=== PATIENT | female | born 1980 | race Caucasian/White ===

== ENCOUNTER 2018-01-15 21:22 | Emergency (ER) | payer BC ==
[2018-01-15] MEDS ORDERED: Fluorescein Sod TOPICAL 0.6* 0.6 MG TEST OPHTHALMIC ONE (21:33)
[2018-01-15] MEDS ORDERED: Tetracaine 0.5% OPTH.SOL 4 ML* 1 DROP BTL RIGHT EYE ONE (21:33)
[2018-01-15 21:36] VITALS: BP 115/73
--- NOTE | 2018-01-15 21:43 | UC ---
Eye Complaint HPI - HPI Summary HPI Summary: Poked right eye with vap pen at 1:30 PM. Ongoing pain and photosensitivity - History of Current Complaint Stated Complaint: EYE COMPLAINT Time Seen by Provider: 01/15/18 21:33 Hx Obtained From: Patient Hx Last Menstrual Period: 2012 ?: No Onset/Duration: Sudden Onset, Lasting Hours - 9, Still Present Timing: Constant Severity Initially: Severe Severity Currently: Severe Pain Intensity: 7 Location of Injury: Other - cornea Character: Sharp, Foreign Body Sensation Aggravating Factor(s): Light, Blinking Alleviating Factor(s): Nothing Associated Signs And Symptoms: Positive: Photophobia - Risk Factors Penetrating Injury Risk Factor: Negative Globe Rupture Risk Factors: Recent Trauma - Allergies/Home Medications Allergies/Adverse Reactions: Allergies Allergy/AdvReac Type Severity Reaction Status Date / Time bupropion [From Wellbutrin] Allergy Hives Verified 01/15/18 21:41 gabapentin Allergy Hives Verified 01/15/18 21:41 heparin Allergy Hives Verified 01/15/18 21:41 metronidazole [From Flagyl] Allergy Hives Verified 01/15/18 21:41 vancomycin Allergy Hives Verified 01/15/18 21:41 Home Medications: Home Medications Cholecalciferol TAB* [Vitamin D TAB*] 400 unit PO DAILY 01/15/18 [History Confirmed 01/15/18] Cyanocobalamin TAB* [Vitamin B12 TAB*] 500 mcg PO DAILY 01/15/18 [History Confirmed 01/15/18] DULoxetine DR CAP* [Cymbalta CAP*] 60 mg PO BID 01/15/18 [History Confirmed ] Hydroxychloroquine TAB* [Plaquenil TAB*] 200 mg PO DAILY 01/15/18 [History Confirmed 01/15/18] Saliva Stimulant Comb. No.4 [Dry Mouth] 1 udc MM BID 01/15/18 [History Confirmed 01/15/18] Topiramate [Topamax] 100 mg PO BID 01/15/18 [History Confirmed 01/15/18] PMH/Surg Hx/FS Hx/Imm Hx - Additional Past Medical History Additional PMH: Lupus - Surgical History Surgical History: Yes Surgery Procedure, Year, and Place: 9 - Family History Known Family History: Positive: Hypertension - Social History Occupation: Employed Full-time Lives: With Family Alcohol Use: Occasionally Substance Use Type: None Smoking Status (MU): Former Smoker - Immunization History Most Recent Tetanus Shot: 2017 Review of Systems Eyes: Blurred Vision, Eye Redness Gastrointestinal: Diarrhea Is Patient Immunocompromised?: No All Other Systems Reviewed And Are Negative: Yes Physical Exam Triage Information Reviewed: Yes Appearance: Well-Appearing, Well-Nourished, Pain Distress - moderate Vital Signs: Initial Vital Signs Temp 97.8 F 01/15/18 21:28 Pulse 86 01/15/18 21:28 Resp 17 01/15/18 21:28 BP 115/73 01/15/18 21:28 Pulse Ox 100 01/15/18 21:28 Vital Signs Reviewed: Yes Eyes: Positive: Conjunctiva Inflamed - OD, Other: - Positive fluorescein uptake in the middle upper cornea approximately 2mm area ENT: Positive: Pharynx normal, TMs normal Neck exam: Normal Respiratory Exam: Normal Cardiovascular Exam: Normal Abdominal Exam: Normal Bowel Sounds: Positive: Present Musculoskeletal Exam: Normal Neurological Exam: Normal Psychological Exam: Normal Skin Exam: Normal Eye Complaint Course/Dx - Differential Dx/Diagnosis Differential Diagnosis/HQI/PQRI: Conjunctivitis, Corneal Abrasion, Foreign Body Provider Diagnoses: Corneal abrasion Discharge - Sign-Out/Discharge Documenting (check all that apply): Patient Departure - Discharge Plan Condition: Stable Disposition: HOME Patient Education Materials: Corneal Abrasion (ED), Erythromycin (Into the eye) Referrals: No Primary Care Phys,NOPCP [Primary Care Provider] - Additional Instructions: EYE OINTMENT USE: Wash hands. Place 1/4" strip across tip of finger. Pull lower lid down with the index finger and stabilize the ointment finger with the middle finger and scrape the ointment off on the lid. Pull the lid out and let go as you look down. - Billing Disposition and Condition Condition: STABLE Disposition: Home
[2018-01-15] MEDS ORDERED: Erythromycin OPTH OINT* APPLIC OINT RIGHT EYE ONE (21:48)
== END 2018-01-15 22:06 | disposition home or self-care (01) ==
LOC: UCCORT 21:22
DX: S05.01XA Injury of conjunctiva and corneal abrasion without foreign body, right eye, initial encounter (principal); W22.8XXA Striking against or struck by other objects, initial encounter; Y93.9 Activity, unspecified; Y92.9 Unspecified place or not applicable; Z88.1 Allergy status to other antibiotic agents; Z88.8 Allergy status to other drugs, medicaments and biological substances; Z87.891 Personal history of nicotine dependence
CPT/HCPCS: 99202; A9270-GY; G0463

== ENCOUNTER 2019-08-02 10:22 | Emergency (ER) | payer BC ==
--- OUTSIDE RECORDS SUMMARY | 2019-08-02 12:21 | XMS REPORT | Continuity of Care Document ---
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 Problems Description No Information Available Social History Type Date Description Comments Sex Unknown Tobacco Use Start: Unknown End: Unknown Former Cigarette Smoker Smoking Status Reviewed: 07/21/19 Former Cigarette Smoker ETOH Use Drinks 1 Alcoholic Beverage Per Day Allergies, Adverse Reactions, Alerts Active Allergies Reaction Severity Comments Date Wellbutrin 07/21/2019 Heparin 07/21/2019 Vancomycin 07/21/2019 Flagyl 07/21/2019 Medications Active Medications SIG Qnty Indications Ordering Date Provider Vitamin B-12 1 tabl by Unknown 1000mcg Tablets mouth every day Vitamin D2 1 by mouth Unknown 2000Unit Tablets every day Nabumetone take 1 tablet Unknown 750mg Tablets by mouth 2 times a day with food Cevimeline HCL Unknown 30mg Capsules Topiramate 1 by mouth 30tabs Unknown 100mg Tablets every day Hydroxychloroquine Sulfate 1 by mouth 180tabs Unknown 200mg every day Tablets Duloxetine HCL 1 by mouth Unknown 60mg Caps DR Part every day Folic Acid 1 tabl by Unknown 1mg Tablets mouth every day Immunizations Description No Information Available Vital Signs Date Vital Result Comment 07/21/2019 11:05am BP Systolic Sitting Right Arm 118 mmHg BP Diastolic Sitting Right Arm 88 mmHg Heart Rate 80 /min Respiratory Rate 18 /min Weight 188.00 lb O2 % BldC Oximetry 99 % Ora Results Description No Information Available Procedures Date Code Description Status 07/21/2019 26034 EKG-Tracing And Report Completed Medical Devices Description No Information Available Encounters Type Date Location Provider Dx Diagnosis Office Visit 07/21/2019 11:00a Cardiology Office Art Farmer MD R00.2 Palpitations R07.89 Other chest pain Assessments Date Code Description Provider 07/21/2019 R00.2 Palpitations Art Farmer MD 07/21/2019 R07.89 Other chest pain Art Farmer MD Plan of Treatment Future Appointment(s):08/31/2019 3:40 pm - Art Farmer MD at Cardiology [id number]/21/2019 - Art Farmer MDR00.2 PalpitationsNew Orders:Echocardiogram, Ordered: 07/21/2013 Cardiac Event Monitor, Ordered: 07/21/19Comments:Likely sinus tachycardia and PACs/PVCs per history. Will get Echo and Cardionet for further assessment. Will need to obtain a copy of labs from PCP for TSH and CBC , [email or web address] Other chest painComments:Non cardiac chest wall pain, likely due to her chronic back issues. Discussed and reassured. Will have echo. If normal structure and function, will hold off ischemic testing as she is a very low pretest probabilityAllFollow up:copy of labs from PCP follow up after testing completed Functional Status Description No Information Available Mental Status Description No Information Available Referrals Description No Information Available
--- OUTSIDE RECORDS SUMMARY | 2019-08-02 12:21 | XMS REPORT | Continuity of Care Document ---
:1980 Author Organization [facility] Address [address], [place] [id number] Phone Care Team Providers Name Role Phone Allen HARRIS, September Unavailable Unavailable Allergies, Adverse Reactions, Alerts Substance Reaction Status VANCOMYCIN HCL Active metronidazole Active BUPROPION HCL Active Medications Medication Instructions Dosage Effective Status Comments Dates (start - stop) NABUMETONE 750 MG TAKE 1 TABLET BY 750 MG - Active TABLET MOUTH EVERY DAY prednisone 5 mg tablet take 4 Tablet by 20 MG - Active oral route every day decrease by 1 tab every 5 days methotrexate sodium 2.5 take 4 Tablet by 10 MG - Active mg tablet oral route every week folic acid 1 mg tablet take 1 tablet by 1 MG - Active oral route every day VALACYCLOVIR HCL 500 MG TAKE 1 TABLET BY - Active TABLET MOUTH EVERY DAY CEVIMELINE HCL 30 MG TAKE 1 CAPSULE BY - Active CAPSULE MOUTH TWO TIMES DAILY hydroxychloroquine 200 TAKE 2 TABLETS BY - Active mg tablet MOUTH EVERY DAY cyclobenzaprine 5 mg take 1 tablet by 5 MG - Active tablet oral route 2 times every day oxcarbazepine 150 mg take 1 (150MG) 150 MG - Active tablet by oral route 2 times every day Topamax 200 mg tablet take 1 tablet by 200 MG - Active oral route 2 times every day peppermint oil - Active Align 4 mg capsule - Active Pepcid 20 mg tablet take 1 tablet by 20 MG - Active oral route 2 times every day tramadol 50 mg tablet take 2 tablet by 100 MG - Active oral route every 8 hours as needed Cymbalta 60 mg take 1 capsule by 60 MG - Active capsule,delayed release oral route 2 times every day Vitamin D3 4,000 unit take 2 by Oral 2 - Active capsule route once Vitamin B-12 ER 1,000 take 1 by Oral 1 - Active mcg tablet,extended route once release CRANBERRY (unknown Not Available - Active strength) Zofran 4 mg tablet take 2 tablet by 8 MG - Active oral route every 8 hours for 2 days as needed nabumetone 750 mg take 1 tablet by 750 MG - No Longer tablet oral route every Active day Problems Condition Effective Dates (start - Clinical Status Comments stop) Systemic involvement of connective tissue, unspecified 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 Pain in rt hip Polyarthritis Systemic involvement of connective tissue, unspecified Other retirement (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 Systemic involvement of connective tissue, unspecified Other retirement (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 Systemic involvement of connective tissue, unspecified 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 Systemic involvement of connective tissue, unspecified 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 Fibromyalgia Systemic involvement of connective tissue, unspecified 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 Systemic involvement of connective tissue, unspecified 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 Fibromyalgia Carpal tunnel syndrome of lt arm Carpal tunnel syndrome of rt arm Systemic involvement of connective tissue, unspecified Fibromyalgia 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 Systemic involvement of connective tissue, unspecified Other retirement 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 Fibromyalgia Systemic involvement of connective tissue, unspecified Other retirement 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 Systemic involvement of connective tissue, unspecified Other retirement 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 Back pain Systemic involvement of connective tissue, unspecified Fibromyalgia Other retirement 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 Back pain Systemic involvement of connective tissue, unspecified 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 Pain in unspecified hand Pain in unspecified ankle and joints of unspecified foot Plantar fasciitis Systemic involvement of connective tissue, unspecified 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 Abnormal weight gain Fatigue Systemic involvement of connective tissue, unspecified Other retirement 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 Systemic involvement of connective tissue, unspecified 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 Pain in joint Fatigue Back pain Fibromyalgia Pain in joint Fatigue Back pain Rheumatoid factor negative - Active Anxiety Active GERD Active Migraine Headaches Active Procedures Procedure Date No information Results Test Name Date and Time Measure Units Reference Range Abnormal Flag Status Comments No information Advance Directives Directive Yes / No Effective Date File Name No information Encounters Encounter Practice Location Reason(s) Diagnoses Date Provider Providers Description For Visit Copied on Encounter [facility] PA-C September. [facility] 0 5794 PLLC, 5794 PLLC [facility], [place], [place], [id number], [id number], [place]. [place] tel:[phone] tel:[phone] Arthritis Arthritis Systemic [facility] [place] involvement PA-C September. Provider: Ty Mcrae [facility] 9 5794 [facility], 5794 PLLC tissue, [facility] unspecifiedOt MD Veto, [address] [place], her joint terminal attack controller [place], Quinn [place], (current) [place], [address] [place], drug [id number], [address], [id number], therapyPain [place]. [place], [place] in rt tel:[phone] [place], tel:[phone] hipPolyarthri [phone] [id number]. [id number] tis tel:[phone] lting Provider: Dayanna panda, [address], [place], [address]. tel:[phone] lting Provider: Eleazar Witt MD, [facility] [address], [place], [address]. tel:[phone] ring Provider: Lesia Venegas MD, [address] [facility], [place], [place], [id number]. tel:[phone] [facility] PA-C September. [facility] 9 5794 PLLC, 5794 PLLC [facility], [place], [place], [id number], [id number], [place]. [place] tel:[phone] tel:[phone] [facility] PA-C September. [facility] 9 5794 PLLC, 5794 PLLC [facility], [place], [place], [id number], [id number], [place]. [place] tel:[phone] tel:[phone] [facility] [place] September. [facility] 9 5794 PLLC, 5794 PLLC [facility], [place], [place], [place], [id number], [id number], [place]. [place] tel:[phone] tel:[phone] Arthritis Arthritis Systemic [facility] [place] involvement PA-C September. 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 [place], [place] tel:[phone] [place], tel:[phone] [id number]. [id number] tel:[phone] lting Provider: Dayanna Gaines , [address] [facility] [address], [place], [address]. tel:[phone] lting Provider: Eleazar Witt MD, [facility] [address], [place], [address]. tel:[phone] [facility] Provider: Lesia Venegas MD, [address], [place], [id number]. tel:[phone] Arthritis Arthritis Systemic [facility] [place] involvement PA-C September. Provider: [facility] connective 9 5794 [facility], 5794 PLLC tissue, [facility] MD, [address] [place] [address], her retirement [place], Quinn [place], (current) [place], [address] Suite [place], 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 [id number], [address], [id number], [place]. [place], [place] tel:[phone] [place], tel:[phone] [id number]. [id number] tel:[phone] lting Provider: Dayanna panda, [address] [facility] [address], [place], [address]. tel:[phone] lting Provider: Eleazar Witt MD, [facility] [place] [address] [facility] [address], [place], [address]. tel:[phone] ring Provider: Lesia Venegas MD, [address] [place], [place], [id number]. tel:[phone] Arthritis Arthritis Systemic Aug- [facility] [place] involvement PA-C September. Provider: [facility] connective 9 5794 [facility] PLLC, 5794 PLLC tissue, [facility] Laws MD, [address] [place] [address], her retirement [place], Quinn [place], (current) [place]., [facility], 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 [id number], [address], [id number], [place]. [place], [place] tel:[phone] [place], tel:[phone] [id number]. [id number] tel:[phone] lting Provider: Dayanna panda, [address] [facility] [address], [place], [address]. tel:[phone] lting Provider: Eleazar Witt MD, [facility] [place] [address] [facility] [address], [place], [address]. tel:[phone] ring Provider: Lesia Venegas MD, [address] [place], [place], [id number]. tel:[phone] Arthritis Arthritis Systemic Jul- [facility] [place] involvement PA-C September. 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 [place], [place] yalgia tel:[phone] [place], tel:[phone] [id number]. [id number] tel:[phone] lting Provider: Dayanna panda, [address] [facility] [address], [place], [address]. tel:[phone] lting Provider: Eleazar Witt MD, [facility] [place] [address] [facility] [address], [place], [address]. tel:[phone] ring Provider: Herrera Upton, [address] [place] [address], [place], [address]. tel:[phone] Arthritis Arthritis Systemic Dec-1 [facility] [place] involvement PA-C September. Provider: [facility] connective 8 5794 [facility] PLLC, 5794 PLLC tissue, 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 [place], [place] tel:[phone] [place], tel:[phone] [id number]. [id number] tel:[phone] lting Provider: Dayanna panda, [address] [facility] [address], [place], [address]. tel:[phone] lting Provider: Eleazar Witt MD, [facility] [place] [address] [facility] [address], [place], [address]. tel:[phone] ring Provider: Herrera Upton, [address] [place] [address], [place], [address]. tel:[phone] Arthritis Arthritis Systemic Sep-0 [facility] [place] involvement PA-C September. Provider: [facility] connective 8 5794 [facility] PLL[facility], 5794 PLLC tissue, 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 [place], [place] yalgiaCarpal tel:+42 [place], tel:[phone]. [phone] syndrome of tel: lt armCarpal [id number] tunnel lting syndrome of Provider: rt arm Dayanna panda, [address] [facility] [address], [place], [address]. tel:[phone] lting Provider: Eleazar Witt MD, [facility] [place] [address] [facility] [address], [place], [address]. [phone] ring Provider: Herrera Upton, [address] [place] [address] [place], [address]. tel:[phone] Arthritis Arthritis Systemic [employer] [facility] Health involvement 6-201 Lianne Romero Provider: [facility] connective 8 5794 [facility] PLLC, 5794 PLLC tissue, [facility] unspecifiedFi MD Justyna, [address] [place], bromyalgiaOth [place], Quinn [place], er retirement [place], [address] [place], (current) [id number], [address], [id number], 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 [place]. [place], [place] tel:+42 [place], tel:[phone]. [id number] tel:[phone] lting Provider: Dayanna panda, [address] [facility] [address], [place], [address]. tel:[phone] lting Provider: Eleazar Witt MD, [facility] [place] [address] [facility] [address], [place], [address]. tel:[phone] ring Provider: Herrera Upton, [address] [facility] [address], [place], [address]. tel:[phone] Arthritis Arthritis Systemic Reginald-0 [facility] [place] involvement 6 PA-C September. 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 [place], [place] tel:[phone] [place], tel:[id number]. [id number] tel:[phone] lting Provider: Dayanna panda, [address] [place], [place] [address]e [address], [place], [address]. tel:[phone] lting Provider: Eleazar Witt MD, [facility] [place] [address] [facility] [address], [place], [address]. tel:[phone] [facility] Provider: Herrera Gracia MD [place], [address] [facility] [address], [place], [address]. tel:[phone] Arthritis Arthritis Systemic Aug-1 [facility] [place] involvement PA-C September. Provider: [facility] connective 8 5794 [facility] PLLC, 5794 PLLC tissue, [facility] HospitalOt MD Veto, [address] [place], her retirement [place], Quinn [place], 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 [place], [address] [place], [id number], 600, [id number], [place]. [place], [place] tel:[phone] [place], tel:[phone] [id number]. [address] tel:[phone] lting Provider: Dayanna panda, [address] [place] [address] [address], [place], [address]. tel:[phone] lting Provider: Eleazar Witt MD, [facility] [place] [address] [facility] [address], [place], [address]. tel:[phone] ring Provider: Herrera Upton, [address] [facility] [address], [place], [address]. tel:[phone] Arthritis Arthritis Systemic May- [facility] [place] involvement PA-C September. Provider: [facility] [place] [address] 5794 [facility] PLLC, 5794 PLLC tissue, 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 [place], [place] tel:[phone] [place], tel:[phone] [id number]. [id number] tel:[phone] lting Provider: Dayanna panda, [address], [place], [address]. tel:[phone] lting Provider: Eleazar Witt MD, [facility] [address], [place], [address]. tel:[phone] ring Provider: Herrera Upton, [address] [facility] [address], [place], [address]. tel:[phone] Arthritis Arthritis Systemic [facility] [place] involvement 0 PA-C September. Provider: [facility] connective 7 5794 [facility] PLLC, 5794 PLLC tissue, [facility] unspecifiedFi MD Veto, [address] [place], bromyalgiaOth [place], Quinn [place], er joint terminal attack controller [place], [address] [place], drug [id number], 600, [id number], therapyBack [place]. [place], [place] pain tel:[phone] [place], tel:[phone]. 176876 tel:[phone] lting Provider: Dayanna panda, [address], [place], [address]. tel:[phone] Provider: Eleazar Witt MD, [facility] [address], [place], [address]. tel:[phone] [facility] Provider: Herrera Upton, [address] [facility] [address], [place], [address]. tel:[phone] [facility] Referring Health Health involvement [facility]. Provider: Associates Ty schroeder connective 7 5794 Herrera Gracia PLLC, 5794 PLLC tissue, Katrina Upton, [facility], [address] [facility], her retirement [place], [address] [place], drug [place], [place], [place], therapyPain [id number], [place], [id number], [place], [address]. [place] unspecified tel:[phone] tel:[phone] tel:[phone] handPain in [phone] unspecified ankle and joints of unspecified footPlantar fasciitis Arthritis Arthritis Systemic [place] Referring Health Health involvement PA-C September. Provider: Ty Mcrae connective 7 5794 Herrera Gracia PLLC, 5794 PLLC tissue, Katrina Upton, [facility], [address] [facility], her retirement [place], [address] [place], drug [place], [place], [place], therapyAbnorm [id number], [place], [id number], [place], [address]. [place] gainFatigue tel:+[phone] tel:[phone] tel:[phone] Arthritis Arthritis Systemic October- [place] Referring [facility] involvement PA-C September. Provider: Ty Mcrae connective 7 5794 Herrera Gr[address] PLLC, 5794 PLLC tissue, Katrina Upton, [facility], [address] [facility] [place], her retirement [place], [address] [place], 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 [place], [place], [place], [id number], [place], [id number], [place], [address]. [place] tel:[phone] tel:+ tel:[phone] Arthritis Arthritis Systemic [facility] involvement PA-C September. Provider: Ty Crawford of connective 7 5794 Herrera Gracia PLLC, 5794 PLLC tissue, Katrina Upton, [facility], [address] [facility], her retirement [place], [address] [place], 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 [place], [place], [place], [id number], [place], [id number], [place], [address]. [place] tel:[phone] tel:+ tel:[phone] Arthritis Arthritis Pain in [facility] jointFatigueB MD [place]. Provider: Ty Crawford ack 7 5794 Herrera Gracia PLLC, 5794 PLLC painFibromyal Katrina Upton, [facility], [address] [place] [address], [place], Road [address] [place], [place], [place], [place], [id number], [place], [id number], [place], [address]. [place] tel:[phone] tel:[phone] tel:[phone] Arthritis Arthritis Pain in [facility] jointFatigueB MD [place]. Provider: Ty Crawford ack pain 6 5794 Herrera Gracia PLLC, 5794 PLLC Katrina Upton, [facility], [address] [place] [address], [place], Road [address] [place], [place], [place], [place], [id number], [place], [id number], [place], [address]. [place] tel:+[phone] tel:[phone] tel:[phone] Family History Family Member Diagnosis Age At Onset No information Immunizations Vaccine Date Status Comments No information Payers Payer name Insurance type Covered republican ID Authorization(s) BCBS No Referral Required [id number] Social History Type Description Quantity Date Captured Comments Sex Female Vital Signs Date / Height Weight BMI Pulse Blood Temperature Respiratory Body Head BMI Pulse Inhaled Time: Rate Pressure Rate Surface Circumference percentile Ox Ox Area No information Chief Complaint And Reason For Visit No information Reason For Referral Reason For Referral No information Plan Of Treatment Date Type Action Status Referral Ordered: ordered *HIP, XRAY UNILATERAL PELVIS, 2 - 3 VIEW Right Referral Ordered: ordered *ANKLE X-RAYS, 2 VIEWS Left Referral Ordered: ordered *ANKLE X-RAYS, 2 VIEWS Right Referral Ordered: ordered *HAND X-RAY, 2 VIEWS Right Referral Ordered: ordered *HAND X-RAY, 2 VIEWS Left Referral Ordered: ordered Dayanna Hilliard MD -Endocrinology, Diabetes and Metabolism (related to Abnormal weight gain) Referral Referred To: ordered Dayanna Hilliard MD [address] [place] [address] [address] [place], [phone] Ordered: Referrals: Endocrinology, Diabetes and Metabolism. Dayanna Hilliard MD. Location: [address] [place] [address]. Evaluate and treat Referral Ordered: ordered *XRAY ENTIRE SPINE AP/LAT Appointment Patt Brenner BOOKED Appointment Patt Brenner BOOKED History Of Present Illness Encounter Date Complaint History Of Present Illness No information Functional Status Date Functional Assessment No information Medications Administered Medication Instructions Dosage Effective Dates (start - stop) Status Comments No information Instructions Date Instruction Additional Information Call if symptoms persist Reviewed importance of compliance/adherence to medications prescribed Risks/benefits of medications reviewed Discussed importance of holding DMARDs/ biologics if patient develops an infection and to notify the treating physician Call if symptoms persist Reviewed importance of compliance/adherence to medications prescribed Risks/benefits of medications reviewed Discussed importance of holding DMARDs/ biologics if patient develops an infection and to notify the treating physician Reviewed importance of compliance/adherence to medications prescribed Risks/benefits of medications reviewed Discussed importance of holding DMARDs/ biologics if patient develops an infection and to notify the treating physician Reviewed importance of compliance/adherence to medications prescribed Risks/benefits of medications reviewed Discussed importance of holding DMARDs/ biologics if patient develops an infection and to notify the treating physician Reviewed importance of compliance/adherence to medications prescribed Risks/benefits of medications reviewed Reviewed importance of compliance/adherence to medications prescribed Risks/benefits of medications reviewed Reviewed importance of compliance/adherence to medications prescribed Risks/benefits of medications reviewed Discussed importance of holding DMARDs/ biologics if patient develops an infection and to notify the treating physician update eye exam; f/u with eye doc Exercise more Weight reduction urged. Stretching Call if symptoms persist Call if symptoms persist Reviewed importance of compliance/adherence to medications prescribed Exercise more Risks/benefits of medications reviewed Reviewed importance of compliance/adherence to medications prescribed Risks/benefits of medications reviewed Discussed importance of holding DMARDs/ biologics if patient develops an infection and to notify the treating physician update eye exam Reviewed importance of compliance/adherence to medications prescribed Risks/benefits of medications reviewed Discussed importance of holding DMARDs/ biologics if patient develops an infection and to notify the treating physician update eye exam yearly Reviewed importance of compliance/adherence to medications prescribed Exercise more Risks/benefits of medications reviewed Stretching update eye exam yearly follow-up with neurology in pain clinic as directed Labs ordered to check disease activity. Labs ordered to check blood counts, liver and kidney functions to monitor safety of medication. continue same medication plan call if symptoms worsen Reviewed importance of compliance/adherence to medications prescribed Risks/benefits of medications reviewed update eye exam yearly Reviewed importance of compliance/adherence to medications prescribed Risks/benefits of medications reviewed Discussed importance of holding DMARDs/ biologics if patient develops an infection and to notify the treating physician
--- OUTSIDE RECORDS SUMMARY | 2019-08-02 12:21 | XMS REPORT | Continuity of Care Document ---
:1980 Author Organization [facility] Address [address], [place] [id number] Phone Care Team Providers Name Role Phone Marge Winn Unavailable Unavailable Allergies, Adverse Reactions, Alerts Substance Reaction Status VANCOMYCIN HCL Active metronidazole Active BUPROPION HCL Active Medications Medication Instructions Dosage Effective Status Comments Dates (start - stop) prednisone 5 mg tablet take 4 Tablet [...] - Active CAPSULE MOUTH TWO TIMES DAILY nabumetone 750 mg tablet take 1 tablet by 750 MG - Active oral route every day hydroxychloroquine 200 TAKE 2 TABLETS BY - [...] 8 hours for 2 days as needed Problems Condition Effective Dates (start - Clinical Status Comments stop) Systemic involvement of connective tissue, unspecified Other mcc (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 Pain in rt hip Polyarthritis Systemic involvement of connective tissue, unspecified Other mcc (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 Systemic involvement of connective tissue, unspecified Other tank terminal gauger (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 Systemic involvement of connective tissue, unspecified Other mcc (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 Systemic involvement of connective tissue, unspecified Other tank terminal gauger (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 Fibromyalgia Systemic involvement of connective tissue, unspecified Other mcc (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 Systemic involvement of connective tissue, unspecified Other tank terminal gauger (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 Fibromyalgia Carpal tunnel syndrome of lt arm Carpal tunnel syndrome of rt arm Systemic involvement of connective tissue, unspecified Fibromyalgia Other tank terminal gauger (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 Systemic involvement of connective tissue, unspecified Other mcc 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 Fibromyalgia Systemic involvement of connective tissue, unspecified Other tank terminal gauger 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 Systemic involvement of connective tissue, unspecified Other mcc 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 Back pain Systemic involvement of connective tissue, unspecified Fibromyalgia Other tank terminal gauger 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 Back pain Systemic involvement of connective tissue, unspecified Other tank terminal gauger 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 Pain in unspecified hand Pain in unspecified ankle and joints of unspecified foot Plantar fasciitis Systemic involvement of connective tissue, unspecified Other tank terminal gauger 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 Abnormal weight gain Fatigue Systemic involvement of connective tissue, unspecified Other tank terminal gauger 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 Systemic involvement of connective tissue, unspecified Other mcc 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 Pain in joint Fatigue Back [...] For Visit Copied on Encounter Arthritis Arthritis [employer] [facility] 0-201 [place] Marge[facility] 9 5194 [facility], 5794 PLLC [facility], [place], [place], [place], [id number], [id number], [place]. [place] tel:[phone] tel:[phone] Arthritis Arthritis Systemic Dec-0 [facility] involvement PA-C September. Provider: Ty Crawford of [facility] 9 5794 [facility], 5794 PLLC tissue, [facility] unspecifiedOt MD Veto, [address] [place], her tank terminal gauger [place], Quinn [place], (current) [place], [address] Suite [place], drug [id number], [address], [id number], therapyPain [place]. [place], [place] in rt tel:[phone] [place], tel:[phone] hipPolyarthri 61163 [id number]. [id number] tis tel:[phone] lting Provider: Dayanna Gaines , [address], [place], [address]. tel:[phone] lting Provider: Eleazar Witt MD, [facility] [place] [address], [place], [address]. tel:[phone] ring Provider: Lesia Venegas MD, [address] [place], [place], [id number]. tel:[phone] [facility] PA-C September. [facility] 9 5794 PLLC, 5794 PLLC [facility], [place], [place], [place], [id number], [id number], [place]. [place] tel:[phone] tel:[phone] Arthritis Arthritis Mar- [facility] PA-C September. [facility] 9 5794 PLLC, 5794 PLLC [facility], [place], [place], [place], [id number], [id number], [place]. [place] tel:[phone] tel:[phone] [facility] PA-C September. [facility] 9 5794 PLLC, 5794 PLLC [facility], [place], [place], [place], [id number], [id number], [place]. [place] tel:[phone] tel:[phone] Arthritis Arthritis Systemic [facility] involvement PA-C September. Provider: Ty [facility] of connective 9 5794 [facility], 5794 PLLC tissue, [facility] Laws MD, [address] [place], her tank terminal gauger [place], Quinn [place], (current) [place], [address] [place], 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 [id number], 600, [id number], [place]. [place], [place] tel:[phone] [place], tel:[phone] [id number]. [id number] tel:[phone] lting Provider: Dayanna panda, [address], [place], [address]. tel:[phone] lting Provider: Eleazar Witt MD, [facility] [address], [place], [address]. tel:[phone] [facility] Provider: Lesia Venegas MD, [address] [place], [place], [id number]. tel:[phone] Arthritis Arthritis Systemic [facility] involvement PA-C September. Provider: Ty [facility] of connective 9 5794 [facility], 5794 PLLC tissue, [facility] un[facility]en[facility] north alabamaEros Laws MD, [address] [place], her tank terminal gauger [place], Quinn [place], (current) [place], [address] [place], 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 [id number], [address], [id number], [place]. [place], [place] tel:[phone] [place], tel:[phone] [id number]. [id number] tel:[phone] lting Provider: Dayanna panda, [address] [facility] [address], [place], [address]. tel:[phone] lting Provider: Eleazar Witt MD, [facility] [place] [address] [facility] [address], [place], [address]. tel:[phone] ring Provider: Lesia Venegas MD, [address] [place], [place], [id number]. tel:[phone] Arthritis Arthritis Systemic Aug- [facility] involvement PA-C September. Provider: [facility] of connective 9 5794 [facility], 5794 PLLC tissue, [facility] Yvonne Laws MD, [address] [place] [address], her mcc [place], Quinn [place], (current) [place], [address] [place], 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 [id number], 600, [id number], [place]. [place], [place] tel:[phone] [place], tel:[phone] [id number]. [address] tel:[phone] lting Provider: Dayanan panda, [address] [facility] [address], [place], [address]. tel:[phone] lting Provider: Eleazar Witt MD, [facility] [place] [address] [facility] [address], [place], [address]. tel:[phone] ring Provider: Lesia Venegas MD, [address] [place], [place], [id number]. tel:[phone] Arthritis Arthritis Systemic Fe-0 [facility] involvement PA-C September. Provider: Associates [facility] of connective 9 5794 [facility], 5794 PLLC tissue, [facility] Laws MD, [address] [place] [address], her tank terminal gauger [place], Quinn [place], (current) [place], [address] Suite [place], drug [id number], 600, [id number], therapyFibrom [place]. [place], [place] yalgia tel:[phone] [place], tel:[phone] [id number]. [id number] tel:[phone] lting Provider: Dayanna panda, [address] [place] [address], [place], [address]. tel:[phone] lting Provider: Eleazar Witt MD, [facility] [place] [address] [facility] [address], [place], [address]. tel:[phone] ring Provider: Herrera Upton, [address] [facility] [address], [place], [address]. tel:[phone] Arthritis Arthritis Systemic May- [facility] involvement PA-C September. Provider: [facility] of connective 8 5794 [facility], 5794 PLLC tissue, [facility] Laws MD, [address] [place] [address], her tank terminal gauger [place], Quinn [place], (current) [place], [address] Suite [place], 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 [id number], [address], [id number], [place]. [place], [place] tel:[phone] [place], tel:[phone] [id number]. [id number] tel:[phone] lting Provider: Dayanna panda, [address] [place] [address] [address], [place], [address]. tel:[phone] lting Provider: Eleazar Witt MD, [facility] [place] [address] [facility] [address], [place], [address]. tel:[phone] ring Provider: Herrera Upton, [address] [facility] [address], [place], [address]. tel:[phone] Arthritis Arthritis Systemic Sep-0 [facility] involvement PA-C September. Provider: Associates [facility] of connective 8 5794 [facility], 5794 PLLC tissue, [facility] HospitalOt MD Veto, [address] [place] [address], her mcc [place], Quinn [place], (current) [place], [address] Suite [place], drug [id number], [address], [id number], therapyFibrom [place]. [place], [place] yalgiaCarpal tel:[phone] [place], tel:[phone] [id number]. 755106 syndrome of tel:[phone] armCarpal [phone] tunnel lting syndrome of Provider: rt arm Dayanna Gaines , [address] [facility] [address], [place], [address]. tel:[phone] lting Provider: Eleazar Witt MD, [facility] [place] [address] [facility] [address], [place], [address]. [phone] ring Provider: Herrera Upton, [address] [place] [address] [address], [place], [address]. [phone] Arthritis Arthritis Systemic Kenia Bridges [facility] involvement [address] Lianne Romero Provider: Associates [facility] of connective 8 5794 [facility], 5794 PLLC tissue, [facility] unspecifiedFi MD Justyna, [address] [facility] [place], Quinn [place], er tank terminal gauger [place], [address] [place], (current) [id number], [address], [id number], 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 [place]. [place], [place] tel:[phone] [place], tel:[phone]. [id number] tel: [phone] lting Provider: Dyaanna Gaines , [address] [facility] [address], [place], [address]. tel:[phone] lting Provider: Eleazar Witt MD, [facility] [place] [address] [facility] [address], [place], [address]. tel:[phone] ring Provider: Herrera Upton, [address] [place] [address] [address], [place], [address]. tel:[phone] Arthritis Arthritis Systemic Reginald-0 [facility] involvement 6 PA-C September. Provider: Associates [facility] of connective 8 5794 [facility], 5794 PLLC tissue, [facility] HospitalE[facility] Laws MD, [address] [place], her tank terminal gauger [place], Quinn [place], drug [place], [address] [place], therapyFibrom [id number], [address], [id number], yalgia [place]. [place], [place] tel:[phone] [place], tel:[phone] [id number]. [id number] tel:[phone] lting Provider: Dayanna panda, [address] [place] [address] [address], [place], [address]. tel:[phone] lting Provider: Eleazar Witt MD, [facility] [place] [address] [facility] [address], [place], [address]. tel:[phone] ring Provider: Herrera Gracia MD [place], [address] [facility] [place], [address]. tel:[phone] Arthritis Arthritis Systemic Aug- [facility] involvement PA-C September. Provider: Associates [facility] of connective 8 5794 [facility], 5794 PLLC tissue, [facility] CenterparrisOt MD Veto, [address] [place], her mcc [place], Quinn [place], 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 [place], [address] Suite [place], [id number], 600, [id number], [place]. [place], [place] tel:[phone] [place], tel:[phone] [id number]. [id number] tel:[phone] lting Provider: Dayanna panda, [address] [place], [place] [address]e [address], [place], [address]. tel:[phone] lting Provider: Eleazar Witt MD, [facility] [place] [address] [facility] [address], [place], [address]. tel:[phone] ring Provider: Herrera Upton, [address] [facility] [address], [place], [address]. tel:[phone] Arthritis Arthritis Systemic [facility] involvement 7 PA-C September. Provider: Associates [facility] 7 5794 [facility], 5794 PLLC tissue, [facility] unspecifiedOt MD Veto, [address] [place], her mcc [place], Quinn [place], drug [place], [address] Suite [place], therapyBack [id number], 600, [id number], pain [place]. [place], [place] tel:[phone] [place], tel:[phone] [id number]. 722342 tel:[phone] lting Provider: Dayanna panda, [address] [place] [address] [address], [place], [address]. tel:[phone] lting Provider: Eleazar Witt MD, [facility] [address], [place], [address]. tel:[phone] ring Provider: Herrera Gracia MD Won, [address] [facility] [address], [place], [address]. tel:[phone] Arthritis Arthritis Systemic [facility] involvement 0 PA-C September. Provider: Associates Associates [facility] 7 5794 [facility], 5794 PLLC tissue, [facility] unspecifiedFi MD Veto, [address] [place], bromyalgiaOth [place], Quinn [place], er mcc [place], [address] Suite [place], drug [id number], 600, [id number], therapyBack [place]. [place], [place] pain tel:[phone] [place], tel:[phone] [id number]. [id number] tel:[phone] lting Provider: Dayanna panda, [address], [place], [address]. tel:[phone] lting Provider: Eleazar Witt MD, [facility] [address], [place], [address]. tel:[phone] ring Provider: Herrera Upton, [address], [place], [address]. tel:[phone] Arthritis Arthritis Systemic [facility] Referring Health Health involvement 6 [facility]. Provider: Ty Crawford of jones 7 5794 [facility] Gr[facility] PLLC, 5794 PLLC tissue, Katrina Upton, [facility], [address] [facility], her mcc [place], Road [address] [place], drug [place], [place], [place], therapyPain [id number], [place], [id number], [place], [address]. [place] unspecified tel:[phone] tel: tel:[phone] handPain in [phone] unspecified ankle and joints of unspecified footPlantar fasciitis Arthritis Arthritis Systemic Madeline Referring [facility] Health involvement PA-C September. Provider: Associates Associates of jones 7 5794 [facility] Gr[facility], 5794 PLLC tissue, Katrina Upton, [facility], [address] [facility], her mcc [place], Road [address] [place], drug [place], [place], [place], therapyAbnorm [id number], Joana, [id number], [place], [address]. [place] gainFatigue tel:[phone] tel: tel:[phone] Arthritis Arthritis Systemic Madeline Referring [facility] Health involvement PA-C September. Provider: Associates Associates of jones 7 5794 Herrera rGacia PLLC, 5794 PLLC tissue, Katrina Upton, [facility], [address] [facility], her tank terminal gauger [place], Road [address] [place], 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 [place], [place], [place], [id number], [place], [id number], [place], [address]. [place] tel:[phone] tel: tel: [phone] Arthritis Arthritis Systemic [facility] involvement KIMBERLY September. Provider: Ty Crawford of connective 7 5794 [address]rera Gr[facility]C, 5794 PLLC tissue, Katrina Upton, [facility], [address] [facility], her mcc [place], Road [address] [place], 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 [place], [place], [place], [id number], [place], [id number], [place], [address]. [place] tel:[phone] tel:+ tel:[phone] Arthritis Arthritis Pain in [facility] jointFatigueB MD [place]. Provider: Ty Crawford ack 7 5794 [facility] [facility], 5794 PLLC painFibromyal Katrina Upton, [facility] gneo [place], [address] [place] [address], [place], [address] [place], [place], [place], [place], [id number], [place], [id number], [place], [address]. [place] tel:[phone] tel:+ tel:[phone] Arthritis Arthritis Pain in [facility] jointFatigueB MD [place]. Provider: Ty Crawford ack pain 6 5794 Herrera Gr[facility], 5794 PLLC Katrina Upton, [facility], [address] [place] [address], [place], [address] [place], [place], [place], [place], [id number], [place], [id number], [place], [address]. [place] tel:[phone] tel:+ tel:[phone] Family History Family Member Diagnosis Age At Onset No information Immunizations Vaccine Date Status Comments No information Payers Payer name Insurance type Covered republican ID Authorization(s) BCBS No Referral Required [id number] Social History Type Description Quantity Date Captured Comments Alcohol Use Details Unknown Caffeine Use Details Unknown Tobacco Use Status Unknown Smoking Status Unknown Sex Female Vital Signs Date / Height [...] Referral Referred To: ordered Dayanna Hilliard MD [address] [place] [address] 809 [place], [phone] Ordered: Referrals: Endocrinology, Diabetes and Metabolism. Dayanan Hilliard MD. Location: [address] [place] [address]. Evaluate and treat Referral Ordered: ordered *XRAY [...]
--- OUTSIDE RECORDS SUMMARY | 2019-08-02 12:21 | XMS REPORT | Continuity of Care Document ---
:1980 Author Organization [facility] Address [address] [place], [place] [id number] Phone Care Team Providers Name Role Phone [...] Systemic involvement of connective tissue, unspecified Other half-way (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 Pain in rt hip Polyarthritis Systemic involvement of connective tissue, unspecified Other half-way (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 Systemic involvement of connective tissue, unspecified Other manager intermediate (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 Systemic involvement of connective tissue, unspecified Other half-way (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 Systemic involvement of connective tissue, unspecified Other half-way (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 Fibromyalgia Systemic involvement of connective tissue, unspecified Other manager intermediate (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 Systemic involvement of connective tissue, unspecified Other manager intermediate (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 Fibromyalgia Carpal tunnel syndrome of lt arm Carpal tunnel syndrome of rt arm Systemic involvement of connective tissue, unspecified Fibromyalgia Other manager intermediate (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 Systemic involvement of connective tissue, unspecified Other half-way 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 Fibromyalgia Systemic involvement of connective tissue, unspecified Other half-way 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 Systemic involvement of connective tissue, unspecified Other half-way 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 Back pain Systemic involvement of connective tissue, unspecified Fibromyalgia Other manager intermediate 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 Back pain Systemic involvement of connective tissue, unspecified Other manager intermediate 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 Pain in unspecified hand Pain in unspecified ankle and joints of unspecified foot Plantar fasciitis Systemic involvement of connective tissue, unspecified Other manager intermediate 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 Abnormal weight gain Fatigue Systemic involvement of connective tissue, unspecified Other half-way 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 Systemic involvement of connective tissue, unspecified Other half-way 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 Pain in joint Fatigue Back [...] For Visit Copied on Encounter Arthritis Arthritis [facility] 7-201 PA-C September. [facility] 9 [address] [facility], [address], [place], [id number], [id number], [place]. [place] tel:[phone] tel:[phone] Arthritis Arthritis Systemic May- [facility] involvement PA-C September. Provider: Ty Crawford [facility] 9 5794 [facility], 5794 PLLC tissue, [facility] unspecifiedOt MD Veto, [address], her half-way [place], Quinn [place], (current) [place], [address] Suite [place], drug [id number], 600, [id number], therapyPain [place]. [place], [place] in rt tel:[phone] [place], tel:[phone] hipPolyarthri 65254 [id number]. [id number] tis tel:[phone] lting Provider: Dayanna Gaines , [address], [place], [address]. tel:[phone] lting Provider: Eleazar Witt MD, [facility] [place] [address], [place], [address]. tel:[phone] [facility] Provider: Lesia Venegas MD, [address], [place], [id number]. tel:[phone] Arthritis Arthritis [facility] PA-C September. [facility] 9 5794 PLLC, 5[address] PLLC [facility], [place], [place], [place], [id number], [id number], [place]. [place] tel:[phone] tel:[phone] Arthritis Arthritis Mar- [facility] PA-C September. [facility] 9 5794 PLLC, 5794 PLLC [facility], [place], [place], [place], [id number], [id number], [place]. [place] tel:[phone] tel:[phone] Arthritis Arthritis [facility] PA-C September. [facility] 9 5794 PLLC, 5794 PLLC [facility], [place], [place], [place], [id number], [id number], [place]. [place] tel:[phone] tel:[phone] Arthritis Arthritis Systemic [facility] involvement PA-C September. Provider: Ty Crawford connective 9 [address] [facility], 5794 PLLC tissue, [facility] Laws MD, [address], her manager intermediate [place], [place], (current) [place], [address] [place], 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 [id number], 600, [id number], [place]. [place], [place] tel:[phone] [place], tel:[phone] [id number]. [id number] tel:[phone] lting Provider: Dayanna panda, [address], [place], [address]. tel:[phone] lting Provider: Eleazar Witt MD, [facility] [address], [place], [address]. tel:[phone] ring Provider: Lesia Venegas MD, [address] [facility], [place], [place], [id number]. tel:[phone] Arthritis Arthritis Systemic [facility] involvement PA-C September. Provider: Ty Associates of connective 9 [address] [facility], 5794 PLLC tissue, [facility] Laws MD, [address], her half-way [place], [place], (current) [place], [address] [place], 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 [id number], 600, [id number], [place]. [place], [place] tel:[phone] [place], tel:[phone] [id number]. [id number] tel:[phone] lting Provider: Dayanna panda, [address] [facility] [address], [place], [address]. tel:[phone] lting Provider: Eleazar Witt MD, [facility] [place] [address] [facility] [address], [place], [address]. tel:[phone] ring Provider: Lesia Venegas MD, [address] [place], [place], [id number]. tel:[phone] Arthritis Arthritis Systemic [facility] involvement PA-C September. Provider: [facility] connective 9 [address] [facility], 5794 PLLC tissue, [facility] Laws MD, [address] [place] [address], her manager intermediate [place], [place], (current) [place], [address] [place], 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 [id number], 600, [id number], [place]. [place], [place] tel:[phone] [place], tel:[phone] [id number]. [id number] tel:[phone] lting Provider: Dayanna Gaines , [address] [facility] [address], [place], [address]. tel:[phone] lting Provider: Eleazar Witt MD, [facility] [place] [address] [facility] [address], [place], [address]. tel:[phone] ring Provider: Lesia Venegas MD, [address] [place], [place], [id number]. tel:[phone] Arthritis Arthritis Systemic Jul-0 [facility] involvement PA-C September. Provider: [facility] connective 9 [address] [facility], 5794 PLLC tissue, [facility] Yvonne Laws MD, [address] [place] [address], her manager intermediate [place], [place], (current) [place], [address] [place], drug [id number], 600, [id number], therapyFibrom [place]. [place], [place] yalgia tel:[phone] [place], tel:[phone] [id number]. [id number] tel:[phone] lting Provider: Dayanna panda, [address] [place] [address] 809, [place], [address]. tel:[phone] lting Provider: Eleazar Witt MD, [facility] [place] [address] [facility] [address], [place], [address]. tel:[phone] ring Provider: Herrera Upton, [address] [facility] [address], [place], [address]. tel:[phone] Arthritis Arthritis Systemic Dec- [facility] involvement PA-C September. Provider: [facility] connective 8 [address] [facility], 5794 PLLC tissue, [facility] Laws MD, [address] [place] [address], her manager intermediate [place], [place], (current) [place], [address] [place], 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 [id number], 600, [id number], [place]. [place], [place] tel:[phone] [place], tel:[phone] [id number]. [id number] tel:[phone] lting Provider: Dayanna panda, [address] [facility] [address], [place], [address]. tel:[phone] lting Provider: Eleazar Witt MD, [facility] [place] [address] [facility] [address], [place], [address]. tel:[phone] ring Provider: Herrera Upton, [address] [facility] [address], [place], [address]. tel:[phone] Arthritis Arthritis Systemic Sep-0 [facility] involvement PA-C September. Provider: [facility] of connective 8 [address] [facility], 5794 PLLC tissue, [facility] HospitalOt MD Veto, [address] [place] [address], her manager intermediate [place], [place], (current) [place], [address] [place], drug [id number], 600, [id number], therapyFibrom [place]. [place], [place] yalgiaCarpal tel:[phone] [place], tel:[phone]. 420709 syndrome of tel:[phone] lt armCarpal [phone] tunnel lting syndrome of Provider: rt arm Dayanna Gaines , [address] [facility] [address], [place], [address]. tel:[phone] lting Provider: Eleazar Witt MD, [facility] [place] [address] [facility] [address], [place], [address]. tel:[phone] ring Provider: Herrera Upton, [address] [place] [address] D, [place], [address]. tel:[phone] Arthritis Arthritis Systemic Jan- [facility] Health involvement Lianne Romero Provider: [facility] connective 8 [address] [facility], 5794 PLLC tissue, [facility] unspecifiedFi MD Justyna, [address] [facility] [place], Quinn [place], er half-way [place], [address] [place], (current) [id number], 600, [id number], 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 [place]. [place], [place] tel:+[phone] [place], tel:[phone]. [address] tel: [phone] lting Provider: Dayanna Gaines , [address] [facility] [address], [place], [address]. tel:[phone] lting Provider: Eleazar Witt MD, [facility] [place] [address] [facility] [address], [place], [address]. tel:[phone] ring Provider: Herrera Upton, [address] [place] [address] Suite , [place], [address]. tel:[phone] Arthritis Arthritis Systemic Reginald-0 [facility] involvement 6-201 PA-C September. Provider: [facility] of connective 8 [address] [facility], 5794 PLLC tissue, [facility] HospitalOt MD Veto, [address] [place] [address], her manager intermediate [place], Quinn [place], drug [place], [address] [place], therapyFibrom [id number], 600, [id number], yalgia [place]. [place], [place] tel:[phone] [place], tel:[phone] [id number]. [id number] tel:[phone] lting Provider: Dayanna panda, [address] [place] [address] 809, [place], [address]. tel:[phone] lting Provider: Eleazar Witt MD, [facility] [place] [address] [facility] [address], [place], [address]. tel:[phone] ring Provider: Herrera Upton, [address] [facility] [place], [address]. tel:[phone] Arthritis Arthritis Systemic Aug- [facility] involvement 2- PA-C September. Provider: [facility] of connective 8 [address] [facility], 5794 PLLC tissue, [facility] HospitalOt MD Veto, [address], her manager intermediate [place], Quinn [place], 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 [place], [address] Suite [place], [id number], 600, [id number], [place]. [place], [place] tel:[phone] [place], tel:[phone] [id number]. 067204 tel:[phone] lting Provider: Dayanna panda, [address] [place] [address] 809, [place], [address]. tel:[phone] lting Provider: Eleazar Witt MD, [facility] [place] [address] [facility] [address], [place], [address]. tel:[phone] ring Provider: Herrera Upton, [address] [facility] [address], [place], [address]. tel:[phone] Arthritis Arthritis Systemic [facility] involvement 7 PA-C September. Provider: [facility] 7 5[address] [facility], 5794 PLLC tissue, [facility] unspecifiedOt MD Veto, [address], her manager intermediate [place], Quinn [place], drug [place], [address] Suite [place], therapyBack [id number], [address], [id number], pain [place]. [place], [place] tel:[phone] [place], tel:[phone] [id number]. [address] tel:[phone] lting Provider: Dayanna panda, [address] [place] [address] [address], [place], [address]. tel:[phone] lting Provider: Eleazar Witt MD, [facility] [place] [address] [place] [address] [address], [place], [address]. tel:[phone] ring Provider: Herrera Lizarragaald, [address] [facility] [address], [place], [address]. tel:[phone] Arthritis Arthritis Systemic [facility] involvement 0 PA-C September. Provider: [facility] 7 [address] [facility], 5794 PLLC tissue, [facility] unspecifiedFi MD Veto, [address], bromyalgiaOth [place], Quinn [place], er half-way [place], [address] Suite [place], drug [id number], 600, [id number], therapyBack [place]. [place], [place] pain tel:[phone] [place], tel:[phone] [id number]. 763569 tel:[phone] lting Provider: Dayanna panda, [address] [place] [address] [address], [place], [address]. tel:[phone] lting Provider: Eleazar Witt MD, [facility] [place] [address], [place], [address]. tel:[phone] [facility] Provider: Herrera Upton, [address], [place], [address]. tel:[phone] Arthritis Arthritis Systemic [facility] Referring Health Health involvement ri Marge. Provider: [facility] 7 5794 [facility], 5794 PLLC tissue, Katrina Upton, [facility], [address] [facility], her manager intermediate [place], [address] [place], drug [place], D, [place], therapyPain [id number], [place], [id number], [place], [address]. [place] unspecified tel:[phone] tel:[phone] tel:[phone] handPain in [phone] unspecified ankle and joints of unspecified footPlantar fasciitis Arthritis Arthritis Systemic [facility] Referring [facility] Health involvement PA-C September. Provider: [facility]ones 7 [address] [facility] [facility], 5794 PLLC tissue, Katrina Upton, [facility], [address] [facility], her manager intermediate [place], Road [address] [place], drug [place], D, [place], therapyAbnorm [id number], Jo[place], [id number], [place], [address]. [place] gainFatigue tel:[phone] tel:[phone] tel:[phone] Arthritis Arthritis Systemic [facility] Referring [facility] Health involvement PA-C September. Provider: [facility] 7 5794 Herrera SCHWARTZC, 5794 PLLC tissue, Katrina Upton, [facility], [address] [facility], her half-way [place], Road [address] [place], 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 [place], D, [place], [id number], [place], [id number], [place], [address]. [place] tel:[phone] tel:[phone] tel:[phone] Arthritis Arthritis Systemic [facility] involvement 1 KIMBERLY September. Provider: Ty Crawford of connective 7 [address] [facility] [facility], 5794 PLLC tissue, Katrina Upton, [facility], [address] [facility], her manager intermediate [place], Road [address] [place], 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 [place], D, [place], [id number], [place], [id number], [place], [address]. [place] tel:[phone] tel: tel:[phone] Arthritis Arthritis Pain in [facility] jointFatigueB MD [place]. Provider: Ty Crawford ack 7 5794 [facility] [facility], 5794 PLLC painFibromyal Katrina Upton, [facility], [address] [place] [address], [place], [address] [place], [place], D, [place], [id number], [place], [id number], [place], [address]. [place] tel:[phone] tel:[phone] tel:[phone] Arthritis Arthritis Pain in [facility] jointFatigueB MD [place]. Provider: Ty reynoldsk pain 6 5[address] [facility], 5794 PLLC Katrina Upton, [facility], [address] [place] [address], [place], Road [address] [place], [place], D, [place], [id number], [place], [id number], [place], [address]. [place] tel:[phone] tel:[phone] tel:[phone] Family History Family Member Diagnosis Age At Onset No information Immunizations Vaccine Date Status Comments No information Payers Payer name Insurance type Covered republican ID Authorization(s) BCBS No Referral Required [id number] Social History Type Description Quantity Date Captured [...] Referral Referred To: ordered Dayanna Hilliard MD [address] [place] [address] 809 [facility] [id number] Ordered: Referrals: Endocrinology, Diabetes and Metabolism. Dayanna Hilliard MD. Location: [address] [place] [address]. Evaluate and treat Referral Ordered: ordered *XRAY [...]
--- OUTSIDE RECORDS SUMMARY | 2019-08-02 12:21 | XMS REPORT | Continuity of Care Document ---
:1980 Author Organization [facility] Address [address], [place] [id number] Phone Care Team Providers Name Role Phone Allen HARRIS, September Unavailable Unavailable Allergies, Adverse Reactions, Alerts Substance Reaction Status VANCOMYCIN HCL Active metronidazole Active BUPROPION HCL Active Medications Medication Instructions Dosage Effective Status Comments Dates (start - stop) HYDROXYCHLOROQUINE 200 TAKE 2 TABLETS BY - Active MG TAB MOUTH EVERY DAY NABUMETONE 750 MG TAKE 1 TABLET BY [...] - Active CAPSULE MOUTH TWO TIMES DAILY cyclobenzaprine 5 mg take 1 tablet by [...] 8 hours for 2 days as needed hydroxychloroquine 200 TAKE 2 TABLETS BY - No Longer mg tablet MOUTH EVERY DAY Active Problems Condition Effective Dates (start - Clinical Status Comments stop) Systemic involvement of connective tissue, unspecified 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 director 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 term care (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 Pain in rt hip Polyarthritis Systemic involvement of connective tissue, unspecified Other nursing home (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 Systemic involvement of connective tissue, unspecified 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 director long term care (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 Systemic involvement of connective tissue, unspecified Other nursing home (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 Systemic involvement of connective tissue, unspecified Other nursing home (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 Fibromyalgia Systemic involvement of connective tissue, unspecified Other nursing home (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 Systemic involvement of connective tissue, unspecified Other nursing home (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 Fibromyalgia Carpal tunnel syndrome of lt arm Carpal tunnel syndrome of rt arm Systemic involvement of connective tissue, unspecified Fibromyalgia Other nursing home (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 Systemic involvement of connective tissue, unspecified 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 Fibromyalgia Systemic involvement of connective tissue, unspecified Other nursing home 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 Systemic involvement of connective tissue, unspecified 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 Back pain Systemic involvement of connective tissue, unspecified Fibromyalgia 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 Back pain Systemic involvement of connective tissue, unspecified Other nursing home 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 Pain in unspecified hand Pain in unspecified ankle and joints of unspecified foot Plantar fasciitis Systemic involvement of connective tissue, unspecified Other nursing home 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 Abnormal weight gain Fatigue Systemic involvement of connective tissue, unspecified Other nursing home 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 Systemic involvement of connective tissue, unspecified Other nursing home 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 Pain in joint Fatigue Back [...] For Visit Copied on Encounter Arthritis Arthritis [facility] PA-C September. [facility] 0 [address]794 PLLC, [address] [facility], [place], [place], [id number], [id number], [place]. [place] tel:[phone] tel:[phone] Arthritis Arthritis [facility] PA-C September. [facility] 0 [facility]794 PLLC, [address] [facility], [place], [place], [id number], [id number], [place]. [place] tel:[phone] tel:[phone] Arthritis Arthritis Systemic [facility] involvement PA-C September. Provider: Ty Mcrae [facility] 9 5794 Abhilash PLLC, 5794 PLLC tissue, [facility] unspecifiedOt MD Veto, [address] [place], her director long term care [place], [place], (current) [place], [address] [place], drug [id number], 600, [id number], therapyPain [place]. [place], [place] in rt tel:[phone] [place], tel:[phone] hipPolyarthri 758[address] [id number]. [id number] tis tel:[phone] lting Provider: Dayanna Gaines , [address] [facility] [address], [place], [address]. tel:[phone] lting Provider: Eleazar Witt MD, [facility] [place] [address] [facility] [address], [place], [address]. tel:[phone] Provider: Lesia Venegas MD, [address], [place], [id number]. tel:[phone] Arthritis Arthritis [facility] PA-C September. [facility] 9 5794 PLLC, [address] [facility], [place], [place], [id number], [id number], [place]. [place] tel:[phone] tel:[phone] Arthritis Arthritis [facility] PA-C September. [facility] 9 5794 PLLC, [address] [facility], [place], [place], [id number], [id number], [place]. [place] tel:[phone] tel:[phone] Arthritis Arthritis Systemic [facility] involvement PA-C September. Provider: [facility] connective 9 5794 Abhilash PLLC, 5794 PLLC tissue, [facility], [address] [place] [address], her nursing home [place], [place], (current) [place], [address] Suite [place], 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 [id number], 600, [id number], [place]. [place], [place] tel:[phone] [place], tel:[phone] [id number]. [id number] tel:[phone] lting Provider: Dayanna Gaines , [address] [facility] [address], [place], [address]. tel:[phone] lting Provider: Eleazar Witt MD, [facility] [address], [place], [address]. tel:[phone] ring Provider: Lesia Venegas MD, [address] [place], [place], [id number]. tel:[phone] Arthritis Arthritis Systemic [facility] involvement PA-C September. Provider: [facility] connective 9 5794 Abhilash PLLC, 5794 PLLC tissue, [facility], [address] [place] [address], her nursing home [place], [place], (current) [place], [address] [place], 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 [id number], 600, [id number], [place]. [place], [place] tel:[phone] [place], tel:[phone] [id number]. [id number] tel:[phone] lting Provider: Dayanna panda, [address] [facility] [address], [place], [address]. tel:[phone] lting Provider: Eleazar Witt MD, [facility] [place] [address] [facility] [address], [place], [address]. tel:[phone] ring Provider: Lesia Venegas MD, [address] [place], [place], [id number]. tel:[phone] Arthritis Arthritis Systemic Aug- [facility] involvement PA-C September. Provider: [facility] connective 9 5794 Abhil[facility] PLLC, 5794 PLLC tissue, [facility] Center[facility] MD Veto, [address] [place] [address], her nursing home [place], [place], (current) IVIS, Dericke., [facility], 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 [id number], 600, [id number], [place]. [place], [place] tel:[phone] [place], tel:[phone] [id number]. [id number] tel:[phone] lting Provider: Dayanna panda, [address] [facility] [address], [place], [address]. tel:[phone] lting Provider: Eleazar Witt MD, [facility] [place] [address] [facility] [address], [place], [address]. tel:[phone] ring Provider: Lesia Venegas MD, [address] [place], [place], [id number]. tel:[phone] Arthritis Arthritis Systemic Fe-0 [facility] involvement PA-C September. Provider: [facility] connective 9 5794 Abhil[facility] PLLC, 5794 PLLC tissue, [facility] Center[facility] MD Veto, [address] [place] [address], her director long term care [place], [place], (current) IVSI, Dericke., [facility], drug [id number], 600, [id number], therapyFibrom [place]. [place], [place] yalgia tel:[phone] [place], tel:[phone] [id number]. [id number] tel:[phone] lting Provider: Dayanna panda, [address] [facility] [address], [place], [address]. tel:[phone] lting Provider: Eleazar Witt MD, [facility] [place] [address] [facility] [address], [place], [address]. tel:[phone] ring Provider: Herrera Upton, [address] [place] [address] [address], [place], [address]. tel:[phone] Arthritis Arthritis Systemic Dec- [facility] involvement PA-C September. Provider: [facility] connective 8 5794 Ab[facility]il[facility] PLLC, 5794 PLLC tissue, [facility] Yvonne Laws MD, [address] [place], her director long term care [place], [place], (current) [place], [address] Suite [place], 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 [id number], 600, [id number], [place]. [place], [place] tel:[phone] [place], tel:[phone] [id number]. [id number] tel:[phone] lting Provider: Dayanna panda, [address] [place] [address] [address], [place], [address]. tel:[phone] lting Provider: Eleazar Witt MD, [facility] [place] [address] [facility] [address], [place], [address]. tel:[phone] ring Provider: Herrera Upton, [address] [place] [address] [address], [place], [address]. tel:[phone] Arthritis Arthritis Systemic Sep-0 [facility] involvement PA-C September. Provider: [facility] connective 8 5794 Abhil[facility] PLLC, 5794 PLLC tissue, [facility] MD Veto, [address] [place], her nursing home [place], [place], (current) [place], [address] Suite [place], drug [id number], 600, [id number], therapyFibrom [place]. [place], [place] yalgiaCarpal tel:[phone] [place], tel:[phone]. [id number] syndrome of tel:+ lt armCarpal [phone] tunnel lting syndrome of Provider: rt arm Dayanna panda, [address] [facility] [address], [place], [address]. tel:[phone] lting Provider: Eleazar Witt MD, [facility] [place] [address] [facility] [address], [place], [address]. tel:[phone] ring Provider: Herrera Upton, [address] [facility] [place], [address]. tel:[phone] Arthritis Arthritis Systemic [facility] involvement [phone] Lianne Romero Provider: [facility] connective 8 5794 Abhilash PLLC, 5794 PLLC tissue, [facility] unspecifiedFi MD Justyna, [address] [place], bromyalgiaOth [place], [place], er nursing home [place], [address] Suite [place], (current) [id number], 600, [id number], 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 [place]. [place], [place] tel:[phone] [place], tel:[phone]. [id number] tel:[phone] lting Provider: Dayanna panda, [address] [facility] [address], [place], [address]. tel:[phone] lting Provider: Eleazar Witt MD, [facility] [place] [address] [facility] [address], [place], [address]. tel:[phone] ring Provider: Herrera Upton, [address] [facility] [place], [address]. tel:[phone] Arthritis Arthritis Systemic Reginald-0 [facility] involvement PA-C September. Provider: [facility] connective 8 5794 Abhilash PLLC, 5794 PLLC tissue, [facility] alabamaOt MD Veto, [address] [place], her director long term care [place], [place], drug [place], [address] [place], therapyFibro [id number], [address], [id number], yalgia [place]. [place], [place] tel:[phone] [place], tel:[phone] [id number]. [id number] tel:[phone] lting Provider: Dayanna panda, [address] [place] [address] [address], [place], [address]. tel:[phone] lting Provider: Eleazar Witt MD, [facility] [place] [address] [facility] [address], [place], [address]. tel:[phone] ring Provider: Herrera Gracia MD [place], [address] [facility] [place], [address]. tel:[phone] Arthritis Arthritis Systemic Aug-1 [facility] involvement PA-C September. Provider: [facility] connective 8 5794 Ab[facility]ilash PLLC, 5794 PLLC tissue, [facility]specen[facility] rehabilitation hospital of north alabamaOt MD Veto, [address] [place], her director long term care [place], [place], 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 [place], [address] Suite [place], [id number], [address], [id number], [place]. [place], [place] tel:[phone] [place], tel:[phone]. 588508 tel:[phone] lting Provider: Dayanna panda, [address] [place], [place] [address]e [address], [place], [address]. tel:[phone] lting Provider: Eleazar Witt MD, [facility] [place] [address] [facility] [address], [place], [address]. tel:[phone] ring Provider: Herrera Upton, [address] [facility] [address], [place], [address]. tel:[phone] Arthritis Arthritis Systemic [facility] involvement PA-C September. Provider: [facility] [place] [address] 5[address] [facility]il[address] PLLC, 5794 PLLC tissue, [facility] unspecifiedOt MD Veto, [address] [place], her nursing home [place], [place], drug [place], [address] Suite [place], therapyBack [id number], [address], [id number], pain [place]. [place], [place] tel:[phone] [place], tel:[phone] [id number]. [id number] tel:[phone] lting Provider: Dayanna panda, [address] [place] [address] [address], [place], [address]. tel:[phone] lting Provider: Eleazar Witt MD, [facility] [address], [place], [address]. tel:[phone] ring Provider: Herrera Upton, [address] [facility] [address], [place], [address]. tel:[phone] Arthritis Arthritis Systemic [facility] involvement 0 PA-C September. Provider: [facility] [place] [address] 5[address] [facility]il[facility] PLLC, 5794 PLLC tissue, [facility] unspecifiedFi MD Veto, [address] [place], bromyalgiaOth [place], [place], er nursing home [place], [address] [place], drug [id number], 600, [id number], therapyBack [place]. [place], [place] pain tel:[phone] [place], tel:[phone]. 225522 tel:[phone] lting Provider: Dayanna panda, [address], [place], [address]. tel:[phone] [facility] Provider: Eleazar Witt MD, [facility] [place] [address] [facility] [address], [place], [address]. tel:[phone] [facility] Provider: Herrera Upton, [address], [place], [address]. tel:[phone] Arthritis Arthritis Systemic [facility] Referring Health Health involvement [facility]. Provider: [facility] of connective 7 5794 Herrera Gracia PLLC, 5794 PLLC tissue, Katrina Upton, [facility], [address] [facility], her nursing home [place], Road Suite [place], drug [place], [place], [place], therapyPain [id number], [place], [id number], [place], [address]. [place] unspecified tel:[phone] tel: tel:[phone] handPain in [phone] unspecified ankle and joints of unspecified footPlantar fasciitis Arthritis Arthritis Systemic [place] Referring Health Health involvement PA-C September. Provider: [facility] of connective 7 5794 Herrera Gracia PLLYuliana, 5794 PLLC tissue, Katrina Upton, [facility], [address] [facility], her director long term care [place], Road [address] [place], drug [place], [place], [place], therapyAbnorm [id number], [place], [id number], [place], [address]. [place] gainFatigue tel:[phone] tel:[phone] tel:[phone] Arthritis Arthritis Systemic [place] Referring [facility] involvement PA-C September. Provider: [facility] of connective 7 5794 Herrera Gracia PLLC, 5794 PLLC tissue, Katrina Upton, [facility], [address] [facility], her nursing home [place], Road [address] [place], 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 [place], [place], [place], [id number], [place], [id number], [place], [address]. [place] tel:+[phone] tel:[phone] tel:[phone] Arthritis Arthritis Systemic [facility] involvement PA-C September. Provider: Ty Crawford of connective 7 5794 Herrera Gracia PLLC, 5794 PLLC tissue, Katrina Upton, [facility], [address] [place] [address], her nursing home [place], Road [address] [place], 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 [place], [place], [place], [id number], [place], [id number], [place], [address]. [place] tel:+[phone] tel:+[phone] tel:[phone] Arthritis Arthritis Pain in [facility] jointFatigueB MD [place]. Provider: Ty Crawford ack 7 5794 Herrera Gracia PLLC, 5794 PLLC painFibromyal Katrina Upton, [facility], [address] [place] [address], [place], Road Suite [place], [place], [place], [place], [id number], [place], [id number], [place], [address]. [place] tel:+[phone] tel:+[phone] tel:[phone] Arthritis Arthritis Pain in [facility] jointFatigueB MD [place]. Provider: Ty Crawford ack pain 6 5794 Herrera Gracia PLLC, 5794 PLLC Katrina Upton, [facility], [address] [place] [address], [place], Road Suite [place], [place], [place], [place], [id number], [place], [id number], [place], [address]. [place] tel:+[phone] tel:+[phone] tel:[phone] Family History Family Member Diagnosis Age At Onset No information Immunizations Vaccine Date Status Comments No information Payers Payer name Insurance type Covered green party ID Authorization(s) BCBS No Referral Required [id number] Social History Type Description Quantity Date Captured [...] Referral Referred To: ordered Dayanna Hilliard MD [address] [place] [address] 809 [place], [phone] Ordered: Referrals: Endocrinology, Diabetes and Metabolism. Dayanna Hilliard MD. Location: [address] [place] [address]. Evaluate and treat Referral Ordered: ordered *XRAY [...]
--- OUTSIDE RECORDS SUMMARY | 2019-08-02 12:21 | XMS REPORT | Summary of Care ---
:1980 Author Organization [facility] Address [address] [place] [address] Care Team Providers Name Role Phone Lesia Venegas MD Primary Care Provider Reason for Referral Physical Therapy (Routine) Status Reason Specialty Diagnoses / Procedures Referred By Contact Referred To Contact Open Diagnoses Acute right-sided low back pain with right-sided sciatica Hawa Monte MD Procedures Physical Therapy Evaluate and Treat (External) [address] [facility] [address] [place] [address] Email: [email or web address] Physical Therapy (Routine) Status Reason Specialty Diagnoses / Procedures Referred By Contact Referred To Contact Open Diagnoses Acute right-sided low back pain with right-sided sciatica Hawa Monte MD Procedures Physical Therapy Evaluate and Treat (External) [address] [facility] [address] [place] [address] Email: [email or web address] Reason for Visit Reason Comments Hip Pain Encounter Details Date Type Department Care Team Description 06/20/2019 [facility] Visit [facility], Acute right- sided low back pain with right-sided sciatica (Primary Dx); [facility] Hip strain, right, initial encounter [address] [facility] [address] [place], [place] [address] [id number] [place], [place] [phone] [phone] Allergies Active Allergy Reactions Severity Noted Date Comments Bupropion 04/15/2015 Metronidazole Itching 09/26/2013 Heparin Hives Medium 10/17/2013 Vancomycin Itching 10/31/2013 Throat got hot, blurry vision per pt Bupropion Hcl Anaphylaxis High 09/17/2011 'Hives and throat closes' documented as of this encounter (statuses as of 06/20/2019) Medications Medication Sig Dispensed Refills Start Date End Date Status ondansetron (ZOFRAN) 4 MG Take 4 mg by 0 Active tablet mouth every 8 (eight) hours as needed for Nausea. Cranberry 400 MG CAPS Take by 0 Active mouth. topiramate (TOPAMAX) 100 200 mg Two 0 04/11/2015 Active MG tablet Times Daily. Cholecalciferol (VITAMIN 0 03/18/2015 Active D3) 2000 UNITS capsule cevimeline (EVOXAC) 30 MG 0 09/27/2017 Active capsule DULoxetine (CYMBALTA) 60 0 08/18/2017 Active MG capsule nabumetone (RELAFEN) 750 take 1 tablet 0 09/28/2016 Active MG tablet by mouth twice a day hydroxychloroquine Take by mouth 0 Active (PLAQUENIL) 200 MG tablet daily B Complex Vitamins Take by mouth 0 Active (B-COMPLEX/B-12 PO) Biotin 5000 MCG Oral Take by mouth 0 Active Capsule OXcarbazepine 150 MG Oral Take 150 mg by 0 11/08/2018 Active Tablet (TRILEPTAL) mouth Cyclobenzaprine HCl 10 MG 0 05/15/2019 Active Oral Tablet (FLEXERIL) Folic Acid 1 MG Oral 0 05/25/2019 Active Tablet (FOLVITE) predniSONE 5 MG Oral 0 05/25/2019 Active Tablet (DELTASONE) valACYclovir HCl 500 MG Take 500 mg by 0 02/27/2019 Active Oral Tablet (VALTREX) mouth daily Methotrexate 2.5 MG Oral 0 05/25/2019 Active Tablet documented as of this encounter (statuses as of 06/20/2019) Active Problems Problem Noted Date Anxiety 04/18/2015 Soft tissue mass 04/15/2015 Trigeminal neuralgia 11/09/2014 Dry eye 01/19/2014 Postoperative wound infection 11/07/2013 Trigeminal neuralgia 05/10/2013 Gastroesophageal reflux disease 04/10/2008 Overview: Overview: Converted from [employer] Congenital hiatus hernia 04/10/2008 Overview: Overview: Converted from [employer] Irritable bowel syndrome 04/10/2008 Overview: Overview: Converted from [employer] documented as of this encounter (statuses as of 06/20/2019) Resolved Problems Problem Noted Date Resolved Date Surgical wound infection 09/23/2013 10/13/2013 documented as of this encounter (statuses as of 06/20/2019) Social History Tobacco Use Types Packs/Day Years Used Date Former Smoker Smokeless Tobacco: Never Used Alcohol Use Drinks/Week oz/Week Comments Yes 3 Glasses of wine 3.0 rarely Sex Assigned at Date Recorded Not on file Job Start Date Occupation Industry Not on file Not on file Not on file Travel History Travel Start Travel End No recent travel history available. documented as of this encounter Last Filed Vital Signs Not on filedocumented in this encounter Progress Notes Hawa Monte MD - 06/20/2019 7:45 AM EST The patient returns today and reports pain in the same areas. She has better days than others but some days are pretty bad. This is depending on the weather and activity. If she overdoes it, then she is in bed all day. The pain is still going down the right lower extremity. This all started on May 08. The pain is worse with movement and better with rest and does not radiate. Past Medical History: Diagnosis Date Anxiety Anxiety 09/2014 under treatment Gastroesophageal reflux disease 04/10/2008 GERD (gastroesophageal reflux disease) NONE SINCE SHEREE FUNDLIPICATION Headache(784.0) 09/2014 Migraines Irritable bowel syndrome Neuromuscular disorder 02/2012 Trigeminal Neuralgia/hemifacial spasms PONV (postoperative nausea and vomiting) Trigeminal autonomic cephalgias UTI (lower urinary tract infection) Past Surgical History: Procedure Laterality Date APPENDECTOMY 1990 APPENDECTOMY 1991 ruptured CARPAL TUNNEL RELEASE BILAT LAST 2011 CARPAL TUNNEL RELEASE 2009 & 2010 Both left and right hands SECTION 2006, 2010 COLONOSCOPY 2004 HERNIA REPAIR 2012 Hiatial - Oscar Fundoplication HYSTERECTOMY 2013 PARTIAL HYSTERECTOMY 09/14/2012 Fibroids - left cervix and ovaries SHREEE FUNDLIPICATION 2011 WY COMPLEX DRAINAGE, WOUND Right 09/23/2013 Procedure: INCISION AND DRAINAGE, simple, POSTOPERATIVE WOUND INFECTION Right retrosigmoid post-op wound infection incision and drainage with removal of hardware; Surgeon: Abhilash Tobin MD; Location: OR 5E; Service: Neurosurgery; Laterality: Right; WY CRANIECT EXPL/DECOM CRANIAL NER Right 09/07/2013 Procedure: RIGHT MICROVASCULAR DECOMPRESSION WITH PLSACEMENT OF LUMBAR DRAIN.; Surgeon: Abhilash Tobin MD; Location: OR 5E; Service: Neurosurgery; Laterality: Right; WY EXC TUMOR SOFT TISSUE UPPER ARM/ELBOW SUBQ 3+CM Left 05/14/2015 Procedure: LEFT FOREARM EXCISION SUPERFICIAL SOFT TISSUE MASS ; Surgeon: Jacob Miranda MD; Location: OR 5E; Service: Orthopedics; Laterality: Left; TUBAL LIGATION 2010 Allergies Allergen Reactions Wellbutrin [Bupropion Hcl] Anaphylaxis 'Hives and throat closes' Heparin Hives Bupropion Flagyl [Metronidazole] Itching Vancomycin Itching Throat got hot, blurry vision per pt Current Outpatient Medications: B Complex Vitamins (B-COMPLEX/B-12 PO), Take by mouth, Disp: , Rfl: Biotin 5000 MCG Oral Capsule, Take by mouth, Disp: , Rfl: cevimeline (EVOXAC) 30 MG capsule, , Disp: , Rfl: Cholecalciferol (VITAMIN D3) 2000 UNITS capsule, , Disp: , Rfl: Cranberry 400 MG CAPS, Take by mouth., Disp: , Rfl: Cyclobenzaprine HCl 10 MG Oral Tablet (FLEXERIL), , Disp: , Rfl: DULoxetine (CYMBALTA) 60 MG capsule, , Disp: , Rfl: Folic Acid 1 MG Oral Tablet (FOLVITE), , Disp: , Rfl: hydroxychloroquine (PLAQUENIL) 200 MG tablet, Take by mouth daily, Disp : , Rfl: Methotrexate 2.5 MG Oral Tablet, , Disp: , Rfl: nabumetone (RELAFEN) 750 MG tablet, take 1 tablet by mouth twice a day, Disp: , Rfl: ondansetron (ZOFRAN) 4 MG tablet, Take 4 mg by mouth every 8 (eight) hours as needed for Nausea., Disp: , Rfl: OXcarbazepine 150 MG Oral Tablet (TRILEPTAL), Take 150 mg by mouth, Disp : , Rfl: predniSONE 5 MG Oral Tablet (DELTASONE), , Disp: , Rfl: topiramate (TOPAMAX) 100 MG tablet, 200 mg Two Times Daily., Disp: , Rfl : valACYclovir HCl 500 MG Oral Tablet (VALTREX), Take 500 mg by mouth daily, Disp: , Rfl: Family History Problem Relation Age of Onset Alcohol abuse Father COPD Father Drug abuse Father Cancer Son Hypertension Brother Social History Socioeconomic History Marital status: Spouse name: Not on file Number of children: Not on file Years of education: Not on file Highest education level: Not on file Occupational History Not on file Social Needs Financial resource strain: Not on file Food insecurity: Worry: Not on file Inability: Not on file Transportation needs: Medical: Not on file Non-medical: Not on file Tobacco Use Smoking status: Former Smoker Smokeless tobacco: Never Used Substance and Sexual Activity Alcohol use: Yes Alcohol/week: 3.0 standard drinks Types: 3 Glasses of wine per week Comment: rarely Drug use: No Sexual activity: Yes Partners: Male Comment: Hysterectomy and partner is only my . Lifestyle Physical activity: Days per week: Not on file Minutes per session: Not on file Stress: Not on file Relationships Social connections: Talks on phone: Not on file Gets together: Not on file Attends yazidi service: Not on file Active member of club or organization: Not on file Attends meetings of clubs or organizations: Not on file Relationship status: Not on file Intimate partner violence: Fear of current or ex partner: Not on file Emotionally abused: Not on file Physically abused: Not on file Forced sexual activity: Not on file Other Topics Concern Not on file Social History Narrative Merged History Encounter A complete review of systems was performed and negative except for HPI. There were no vitals filed for this visit. In General the patient is well-appearing, well-developed, well-nourished, in NAD. Alert and orientedx3. Mood and affect are appropriate. Skin in all four extremities is warm and anicteric without rashes, lesions, or ulcers. Exam of the digits and nails is normal. There are no varicosities and the extremities are warm and well-perfused. Gait is with a limp with good balance. The patient does have paraspinal muscle tenderness. There is midline tenderness over the lumbar spine. There is 5/5 strength in the bilateral lower extremities IP/Q/H/TA/G/EHL. There is no clonus. Straight leg raise does cause pain on the right side in the posterior hip and there is hamstring tightness. She also has popping of the right hip with straight leg-raise. Straight leg raise does not cause pain on the left side.Flexion and external rotation of the right hip does not cause pain. Flexion and internal rotation of the left hip does not cause pain. There is tenderness over the right SI joint and ischium. There is tenderness over the left SI joint. There is no tenderness over the right greater trochanter. There is no tenderness over the left greater trochanter.She is able to flex with fingertips at the distal tibiae. She has tingling in the right lower extremity down to her toes. A/P: This is a 38 y.o. year-old with right lower extremity likely radiculopathy but also popping in the right hip. She had an EMG with Dr. Witt last year that was normal. She is supposed to be scheduling another EMG this year. I talked with her about physical therapy. She reports she has had injections in the past and they have not worked and crystallized in the areas. She is going to notify [facility]. She is going to continue the nabumetome. She sees [facility]. She is also on Topamax for trigeminal neuralgia and oxcarbazepine. We may consider spinal injections in the future and also she had more swelling with chiro in the past. Procedure note: The risks of the procedure were discussed with the patient with the risks including not limited to infection (higher due to methotrexate) and steroid flare. The patient wished to proceed. With the patient lying on the side, the site is prepped sterile with chlorhexadine and alcohol. The painful point over the greater trochanter is identified. The area is injected with 80mg of Depo- medrol and 8cc of 1% lidocaine. The patient tolerated the procedure well and after the procedure reports significant relief of pain. documented in this encounter Plan of Treatment Health Maintenance Due Date Last Done Comments MMR Vaccines (1 of 1 - Standard 1981 series) Varicella Vaccines (1 of 2 - 1981 2-dose childhood series) HIV Screening 1993 Cervical Cancer Screening 5 years 2001 DTaP,Tdap,and Td Vaccines (2 - Td) 11/10/2016 10/13/2016 Influenza Vaccine 03/21/2019 Pneumococcal Vaccine: 65+ Years (1 2045 of 2 - PCV13) HIB Vaccines Aged Out No longer eligible based on patient's age to complete this topic Hepatitis A Vaccines Aged Out No longer eligible based on patient's age to complete this topic Hepatitis B Vaccines Aged Out No longer eligible based on patient's age to complete this topic IPV Vaccines Aged Out No longer eligible based on patient's age to complete this topic Pneumococcal Vaccine: Pediatrics Aged Out No longer eligible based on (0 to 5 Years) and At-Risk patient's age to complete Patients (6 to 64 Years) this topic documented as of this encounter Implants Implanted Type Area Jewelsmith Device Shelf Model / Identifier Expiration Serial / Date Lot Graft Duraform Dural 3x3" - [id number] Right: +[facility] 10/18/2013 [id number] / Implanted: Qty: 1 on 09/07/2013 by Abhilash Tobin MD at [facility] [employer] / [id number] Bone Sub Hydroset 5cc - [id number] Right: [employer] 11/18/2014 [id number] / Implanted: Qty: 1 on 09/07/2013 by Abhilash Tobin MD at [facility] [employer] / [id number] documented as of this encounter Results Not on filedocumented in this encounter Visit Diagnoses Diagnosis Acute right-sided low back pain with right-sided sciatica - Primary Hip strain, right, initial encounter documented in this encounter
--- OUTSIDE RECORDS SUMMARY | 2019-08-02 12:21 | XMS REPORT | Continuity of Care Document ---
:1980 Author Organization [facility] Address [address], [place] [id number] Phone Care Team Providers Name Role Phone Allen HARRIS, September Unavailable Unavailable Allergies, Adverse Reactions, Alerts Substance Reaction Status VANCOMYCIN HCL Active metronidazole Active BUPROPION HCL Active Medications Medication Instructions Dosage Effective Status Comments Dates (start - stop) methotrexate sodium 2.5 take 6 Tablet by 15 MG - Active mg tablet oral route every week folic acid 1 mg tablet take 1 tablet by 1 MG - Active oral route 2 times every day HYDROXYCHLOROQUINE 200 TAKE 2 TABLETS BY - Active MG TAB MOUTH EVERY DAY NABUMETONE 750 MG TAKE 1 TABLET BY 750 MG - Active TABLET MOUTH EVERY DAY VALACYCLOVIR HCL 500 MG TAKE 1 TABLET BY - Active TABLET MOUTH EVERY DAY CEVIMELINE HCL 30 MG TAKE 1 CAPSULE BY - Active CAPSULE MOUTH TWO TIMES DAILY cyclobenzaprine 5 mg take 1 tablet by 5 MG - Active tablet oral route 2 times every day oxcarbazepine 150 mg take 2 (300MG) 300 MG - Active tablet by oral route 3 times every day PROBIOTIC (unknown 1 twice a day Not Available - Active strength) Topamax 200 mg tablet take 1 tablet by 200 MG - Active oral route 2 times every day Cymbalta 60 mg take 1 capsule by 60 MG - Active capsule,delayed release oral route 2 times every day Vitamin D3 4,000 unit take 2 by Oral 2 - Active capsule route once Vitamin B-12 ER 1,000 take 1 by Oral 1 - Active mcg tablet,extended route once release Zofran 4 mg tablet take 2 tablet by 8 MG - Active oral route every 8 hours for 2 days as needed prednisone 5 mg tablet take 4 Tablet by 20 MG - No Longer oral route every Active day decrease by 1 tab every 5 days methotrexate sodium 2.5 take 4 Tablet by 10 MG - No Longer mg tablet oral route every Active week folic acid 1 mg tablet take 1 tablet by 1 MG - No Longer oral route every Active day Probiotic 10 billion 1 twice a day - No Longer cell capsule Active oxcarbazepine 150 mg take 1 (150MG) 150 MG - No Longer tablet by oral route 2 Active times every day peppermint oil - No Longer Active Align 4 mg capsule - No Longer Active Pepcid 20 mg tablet take 1 tablet by 20 MG - No Longer oral route 2 Active times every day tramadol 50 mg tablet take 2 tablet by 100 MG - No Longer oral route every Active 8 hours as needed CRANBERRY (unknown Not Available - No Longer strength) Active Problems Condition Effective Dates (start - Clinical Status Comments stop) Systemic involvement of connective tissue, unspecified 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 Systemic involvement of connective tissue, unspecified 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 Pain in rt hip Polyarthritis Systemic involvement of connective tissue, unspecified 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 Systemic involvement of connective tissue, unspecified Other prison (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 Systemic involvement of connective tissue, unspecified Other prison (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 Systemic involvement of connective tissue, unspecified 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 Fibromyalgia Systemic involvement of connective tissue, unspecified Other prison (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 Systemic involvement of connective tissue, unspecified 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 Fibromyalgia Carpal tunnel syndrome of lt arm Carpal tunnel syndrome of rt arm Systemic involvement of connective tissue, unspecified Fibromyalgia 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 Systemic involvement of connective tissue, unspecified 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 Fibromyalgia Systemic involvement of connective tissue, unspecified 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 Systemic involvement of connective tissue, unspecified 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 Back pain Systemic involvement of connective tissue, unspecified Fibromyalgia 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 Back pain Systemic involvement of connective tissue, unspecified Other prison 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 Pain in unspecified hand Pain in unspecified ankle and joints of unspecified foot Plantar fasciitis Systemic involvement of connective tissue, unspecified 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 Abnormal weight gain Fatigue Systemic involvement of connective tissue, unspecified 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 Systemic involvement of connective tissue, unspecified 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 Pain in joint Fatigue Back pain Fibromyalgia Pain in joint Fatigue Back pain Rheumatoid factor negative - Active Anxiety Active GERD Active Migraine Headaches Active Procedures Procedure Date ROUTINE VENIPUNCTURE COMPLETE CBC W/AUTO DIFF WBC RBC SED RATE, AUTOMATED C-REACTIVE PROTEIN ASSAY OF CREATININE TRANSFERASE (AST) (SGOT) ALANINE AMINO (ALT) (SGPT) OFFICE/OUTPATIENT VISIT, EST Results Test Name Date and Time Measure Units Reference Range Abnormal Flag Status Comments Panel Description: CBC Final WBC 11:16:00 6.2 10*3/uL 3.7-10.1 Final RBC 11:16:00 4.11 10*6/uL 3.50-5.50 Final HGB 11:16:00 13.9 g/dL 12.0-16.0 Final HCT 11:16:00 42.0 % 36.0-48.0 Final MCV 11:16:00 102.0 fL 80.0-100.0 H Final MCH 11:16:00 33.9 pg 26.0-34.0 Final MCHC 11:16:00 33.2 g/dL 31.0-37.0 Final RDW 11:16:00 13.1 % 10.0-15.0 Final PLATELETS 11:16:00 320 10*3/uL 150-500 Final MPV 11:16:00 6.7 fL 6.0-10.0 Final ELEUTERIO# 11:16:00 3.45 10*3/uL 2.10-8.00 Final LYM# 11:16:00 2.19 10*3/uL 1.00-5.00 Final MONO# 11:16:00 0.35 10*3/uL 0.10-1.00 Final EOS# 11:16:00 0.1 10*3/uL 0.0-0.5 Final BASO# 11:16:00 0.1 10*3/uL 0.0-0.2 Final ELEUTERIO% 11:16:00 55.8 % 50.0-80.0 Final LYM% 11:16:00 35.3 % 25.0-50.0 Final MONO% 11:16:00 5.6 % 2.0-10.0 Final EOS% 11:16:00 1.7 % 0.0-5.0 Final BASO% 11:16:00 1.6 % 0.0-4.0 Final Panel Description: ESR Final ESR 11:16:00 <2 mm/Hr 0-20 Final Panel Description: ALT Final ALT 11:16:00 23 U/L 30-65 L Final Panel Description: AST Final AST 11:16:00 19 U/L 15-37 Final Panel Description: CREATININE Final CREATININE 11:16:00 0.9 mg/dL 0.6-1.2 Final eGFR 11:16:00 >60 mL/min/1.73m Final Panel Description: CRP Final CRP 11:16:00 <0.2 mg/dL 0.0-1.0 Final Advance Directives Directive Yes / No Effective Date File Name No information Encounters Encounter Practice Location Reason(s) Diagnoses Date Provider Providers Description For Visit Copied on Encounter OFFICE/OUTPA Arthritis Arthritis Connective Systemic [employer] [facility] VISIT, Health Health Tissue involvement 0- PA-C September. 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 [place], [place] tel:+ [place], tel:[phone]. [id number] tel:[phone] lting Provider: Dayanna Gaines ki, [address], [place], [address]. tel:[phone] lting Provider: Eleazar Witt MD, [facility] [place] [address], [place], [address]. tel:[phone] ring Provider: Lesia Venegas MD, [address] [place], [place], [id number]. tel:[phone] Arthritis Arthritis [facility] PA-C September. [facility] 0 5794 PLLC, 5794 PLLC [facility], [place], [place], [place], [id number], [id number], [place]. [place] tel:+ tel:[phone] Arthritis [facility]ritis [facility] PA-C September. [facility] 0 5794 PLLC, 5794 PLLC [facility], [place], [place], [id number], [id number], [place]. [place] tel:+ tel:[phone] Arthritis Arthritis Systemic [facility] involvement PA-C September. 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 [place], [place] in rt tel:+315 [place], tel:[phone] hipPolyarthri [phone] [id number]. [id number] tis tel:[phone] lting Provider: Dayanna panda, [address], [place], [address]. tel:[phone] lting Provider: Eleazar Witt MD, [facility] [place] [address] [facility] [address], [place], [address]. tel:[phone] ring Provider: Lesia Venegas MD, [address], [id number]. tel:[phone] Arthritis Arthritis Apr- [facility] 2 PA-C September. [facility] 9 5794 PLLC, 5794 PLLC [facility], [address], [place], [place], [id number], [id number], [place]. [place] tel:[phone] tel:[phone] Arthritis Arthritis [facility] 8 PA-C September. [facility] 9 5794 PLLC, 5794 PLLC [facility], [address], [place], [place], [id number], [id number], [place]. [place] tel:+[phone] tel:[phone] Arthritis Arthritis Systemic [facility] involvement 7 PA-C September. Provider: [facility] 9 [address] [facility], 5794 PLLC tissue, [facility] unspecifiedOt MD Veto, [address], her prison [place], Quinnjanay Guillenuse, (current) [place], [address] Suite [place], 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 [id number], 600, [id number], [place]. [place], [place] tel:+8991 [place], tel:[phone] [id number]. [id number] tel:[phone] lting Provider: Dayanna panda, [address], [place], [address]. tel:[phone] lting Provider: Eleazar Witt MD, [facility] [place] [address] [facility] [address], [place], [address]. tel:[phone] ring Provider: Lesia Venegas MD, [address] [place], [place], [id number]. tel:[phone] Arthritis Arthritis Systemic Nov- [facility] involvement PA-C September. 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 [place], [place] tel:+[address] [place], tel:[phone] [id number]. [id number] tel:[phone] lting Provider: Dayanna panda, [address], [place], [address]. tel:[phone] lting Provider: Eleazar Witt MD, [facility] [place] [address] [facility] [address], [place], [address]. tel:[phone] [facility] Provider: Lesia Venegas MD, [address] [place], [place], [id number]. tel:[phone] Arthritis Arthritis Systemic [facility] involvement PA-C September. Provider: Associates Associates of connective 9 [address] PLLYuliana, 5794 PLLC tissue, [facility] Yvonne Laws MD, [address], her prison [place], Quinn [place], (current) [place], [address] [place], 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 [id number], 600, [id number], [place]. [place], [place] tel:+[address] [place], tel:[phone] [id number]. [id number] tel:[phone] lting Provider: Dayanna panda, [address], [place], [address]. tel:[phone] lting Provider: Eleazar Witt MD, [facility] [place] [address] [facility] [address], [place], [address]. tel:[phone] ring Provider: Lesia Venegas MD, [address] [place], [place], [id number]. tel:[phone] Arthritis Arthritis Systemic [facility] involvement 6 PA-C September. 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 [place], [place] yalgia tel:[phone] [place], tel:[phone] [id number]. [id number] tel:[phone] lting Provider: Dayanna Gaines , [address] [facility] [address], [place], [address]. tel:[phone] lting Provider: Eleazar Witt MD, [facility] [place] [address] [facility] [address], [place], [address]. tel:[phone] ring Provider: Herrera Gracia MD [place], [address] [facility] [place], [address]. tel:[phone] Arthritis Arthritis Systemic [facility] involvement 8 PA-C September. Provider: Associates Associates of connective 8 [address] [facility], 5794 PLLC tissue, [facility] Yvonne Laws MD, [address] [place] [address], her prison [place], Quinn [place], (current) [place], [address] [place], 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 [id number], 600, [id number], [place]. [place], [place] tel:[phone] [place], tel:[phone] [id number]. [id number] tel:[phone] lting Provider: Dayanna panda, [address] [facility] [address], [place], [address]. tel:[phone] lting Provider: Eleazar Witt MD, [facility] [place] [address] [facility] [address], [place], [address]. tel:[phone] ring Provider: Herrera Upton, [address] [facility] [address], [place], [address]. tel:[phone] Arthritis Arthritis Systemic Sep-0 [employer] Health Health involvement KIMBERLY September. 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 [place], [place] yalgiaCarpal tel:+3154 [place], tel:[phone] [id number]. [id number] syndrome of tel:[phone] lt armCarpal [phone] tunnel lting syndrome of Provider: rt arm Dayanna Gaines , [address] [facility] [address], [place], [address]. tel:[phone] lting Provider: Eleazar Witt MD, [facility] [place] [address] [facility] [address], [place], [address]. tel:[phone] ring Provider: Herrera Upton, [address] [facility] [address], [place], [address]. tel:[phone] Arthritis Arthritis Systemic Aug- [employer] Health Health involvement Lianne Romero Provider: Associates Associates of connective 8 [address] [facility], 5794 PLLC tissue, [facility] unspecifiedHayes Jansen MD, [address] [place] [address], [facility] [place], Quinn [place], er termite control technician [place], [address] [place], (current) [id number], 600, [id number], 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 [place], [place] tel:+3154 [place], tel:[phone] [id number]. [id number] tel:[phone] lting Provider: Dayanna panda, [address] [facility] [address], [place], [address]. tel:[phone] lting Provider: Eleazar Witt MD, [facility] [place] [address] [facility] [address], [place], [address]. tel:[phone] ring Provider: Herrera Upton, [address] [place] [address] [address], [place], [address]. tel:[phone] Arthritis Arthritis Systemic Reginald-0 [facility] involvement 6-201 PA-C September. Provider: Associates Associates of connective 8 [address] [facility], 5794 PLLC tissue, [facility] unspecifiedOt MD Veto, [address], her prison [place], Quinn [place], drug [place], [address] [place], therapyFibrom [id number], 600, [id number], yalgia [place]. [place], [place] tel:+749 [place], tel:[phone] [id number]. [id number] tel:[phone] lting Provider: Dayanna panda, [address] [facility] [address], [place], [address]. tel:[phone] lting Provider: Eleazar Witt MD, [facility] [place] [address] [facility] [address], [place], [address]. tel:[phone] ring Provider: Herrera Upton, [address] [place] [address] [address], [place], [address]. tel:[phone] Arthritis Arthritis Systemic Aug- [facility] involvement 2- PA-C September. Provider: Associates Associates of connective 8 [address] [facility], 5794 PLLC tissue, [facility] Veto, [address] [place] [address], her prison [place], Quinn [place], 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 [place], [address] Suite [place], [id number], 600, [id number], [place]. [place], [place] tel:+-[phone] [place], tel:[phone] [id number]. [id number] tel:[phone] lting Provider: Dayanna panda, [address] [place] [address] [address], [place], [address]. tel:[phone] lting Provider: Eleazar Witt MD, [facility] [place] [address] [facility] [address], [place], [address]. tel:[phone] ring Provider: Herrera Lizarragaald, [address] [place] [address], [address]. tel:[phone] Arthritis Arthritis Systemic [facility][Note 3] Health involvement 7- PA-C September. Provider: Associates Associates of connective 7 [address] [facility], 5794 PLLC tissue, [facility] Veto, [address], her termite control technician [place], Quinn [place], drug [place], [address] [place], therapyBack [id number], 600, [id number], pain [place]. [place], [place] tel:+[address] [place], tel:[phone] [id number]. [id number] tel:[phone] lting Provider: Dayanna panda, [address] [facility] [address], [place], [address]. tel:[phone] lting Provider: Eleazar Witt MD, [facility] [place] [address] [facility] [address], [place], [address]. tel:[phone] ring Provider: Herrera Upton, [address] [facility] [address], [place], [address]. tel:[phone] Arthritis Arthritis Systemic [facility] Health involvement 0 PA-C September. Provider: Associates Associates of connective 7 [address] [facility], 5794 PLLC tissue, [facility] Mahad [facility] MD Veto, [address], bromyalgiaOth [place], Quinn [place], er termite control technician [place], [address] [place], drug [id number], 600, [id number], therapyBack [place]. [place], [place] pain tel:+5732 [place], tel:[phone] [id number]. [id number] tel:[phone] lting Provider: Dayanna Gaines , [address] [facility] [address], [place], [address]. tel:[phone] lting Provider: Eleazar Witt MD, [facility] [place] [address] [facility] [address], [place], [address]. tel:[phone] ring Provider: Herrera Upton, [address] [facility] [address], [place], [address]. tel:[phone] Arthritis Arthritis Systemic [facility] Health involvement an Bird. Provider: Associates Associates of connective 7 5794 [facility] Gr[facility], 5794 PLLC tissue, [facility] MD Upton, [facility], [address] [facility], her termite control technician [place], Road [address] [place], drug [place], [place], [place], therapyPain [id number], [place], [id number], [place], [address]. [place] unspecified tel:[phone] tel:+[phone] tel:[phone] handPain in [phone] unspecified ankle and joints of unspecified footPlantar fasciitis Arthritis Arthritis Systemic [facility] Health involvement PA-C September. Provider: Associates Associates of connective 7 5[address] [facility], 5794 PLLC tissue, Katrina Upton, [facility], [address] [facility], her prison [place], Road [address] [place], drug [place], [place], [place], therapyAbnorm [id number], [place], [id number], [place], [address]. [place] gainFatigue tel:+[phone] tel:+ tel:[phone] Arthritis Arthritis Systemic [facility] involvement PA-C September. Provider: Associates Kiki 7 5794 [facility] [address], 5794 PLLC Katrina gaitan MD, [facility], [address] [facility], her termite control technician [place], Road [address] [place], 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 [place], [place], [place], [id number], [place], [id number], [place], [address]. [place] tel:+3154 tel:+315 tel:[phone] Arthritis Arthritis Systemic [facility] involvement PA-C September. Provider: Associates Kiki 7 5794 [facility], 5794 PLLC tissue, Katrina Upton, [facility], [address] [facility], her prison [place], Road [address] [place], 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 [place], [place], [place], [id number], [place], [id number], [place], [address]. [place] tel:+[phone] tel:+3156 tel:[phone] Arthritis Arthritis [facility] jointFatigueB MD [place]. Provider: Associates Associates gillian 7 5[address] [facility], 5794 PLLC painFibromyal Katrina Upton, [facility], [address], [place], Road [address] [place], [place], D, [place], [id number], [place], [id number], [place], [address]. [place] tel:[phone] tel:[phone] tel:[phone] Arthritis Arthritis Pain in [facility] jointFatigueB MD [place]. Provider: Ty Crawford ack pain 6 5794 [facility]C, 5794 PLLC [facility] MD Upton, [facility], [address] [facility], [facility] Suite [place], [place], , [place], [id number], [place], [id number], [place], [address]. [place] tel:[phone] tel:5880 tel:[phone] Family History Family Member Diagnosis Age At Onset Maternal grandmother Cardiovascular disease Son Leukemia Father Lymphoma Immunizations Vaccine Date Status Comments No information Payers Payer name Insurance type Covered constitution party ID Authorization(s) BCBS No Referral Required [id number] Social History Type Description Quantity Date Captured Comments Alcohol Use Details 5 drinks weekly Caffeine Use Details 1 cup per day Tobacco Use Status Ex-smoker Smoking Status Former smoker Non-Smoking Tobacco : No Details Available : No Details Available 2019 Use Details Sex Female Vital Signs Date / Height Weight BMI Pulse Blood Temperature Respiratory Body Head BMI Pulse Inhaled Time: Rate Pressure Rate Surface Circumference percentile Ox Ox Area 65.00 186.00 30.9 in lbs 5 mm[Hg] 10:43 kg/m AM sadiaer (2) Chief Complaint And Reason For Visit Most recent encounter only, dated '07/10/2019 10:40'. Connective Tissue Disease (chief complaint). Description: The pain severity is 6/10. Patient is experiencing generalized morning stiffness for 1 Hour. Patient denies having hair loss, infection, fever, rash, Raynaud's, oral ulcers (mouth sores) and photosensitivity. Patient is currently taking Methotrexate with no side effects and Plaquenil with no side effects. Reason For Referral Reason For Referral No [...] Referral Referred To: ordered Dayanna Hilliard MD [address] [facility] [address] [place], [phone] Ordered: Referrals: Endocrinology, Diabetes and Metabolism. Dayanna Hilliard MD. Location: [address] [place] [address]. Evaluate and treat Referral Ordered: ordered *XRAY ENTIRE SPINE AP/LAT Appointment Patt Brenner BOOKED History Of Present Illness Encounter Date Complaint History Of Present Illness Connective Tissue Disease The pain severity is 6/10. Patient is experiencing generalized morning stiffness for 1 Hour. Patient denies having hair loss, infection, fever, rash, Raynaud's, oral ulcers (mouth sores) and photosensitivity. Patient is currently taking Methotrexate with no side effects and Plaquenil with no side effects. Functional Status Date Functional Assessment No information Medications Administered Medication Instructions Dosage Effective Dates (start - stop) Status Comments No information Instructions Date Instruction Additional Information Reviewed importance of compliance/adherence to medications prescribed [...]
--- OUTSIDE RECORDS SUMMARY | 2019-08-02 12:21 | XMS REPORT | Continuity of Care Document ---
:1980 Author Organization [facility] Address [address] [place], [place] [id number] Phone Care Team Providers Name Role Phone [...] MOUTH TWO TIMES DAILY nabumetone 750 mg take 1 tablet by 750 MG - Active tablet oral route every day hydroxychloroquine 200 TAKE [...] as needed prednisone 5 mg tablet take 3 Tablet by 15 MG - No Longer oral route every Active day decrease by 1 tab every 5 days Problems Condition Effective Dates (start - Clinical Status Comments stop) Systemic involvement of connective tissue, unspecified Other penitentiary (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 Pain in rt hip Polyarthritis Systemic involvement of connective tissue, unspecified Other intermediate frame tender (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 Systemic involvement of connective tissue, unspecified Other penitentiary (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 Systemic involvement of connective tissue, unspecified Other intermediate frame tender (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 Systemic involvement of connective tissue, unspecified Other penitentiary (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 Fibromyalgia Systemic involvement of connective tissue, unspecified Other penitentiary (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 Systemic involvement of connective tissue, unspecified Other penitentiary (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 Fibromyalgia Carpal tunnel syndrome of lt arm Carpal tunnel syndrome of rt arm Systemic involvement of connective tissue, unspecified Fibromyalgia Other intermediate frame tender (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 Systemic involvement of connective tissue, unspecified Other penitentiary 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 Fibromyalgia Systemic involvement of connective tissue, unspecified Other intermediate frame tender 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 Systemic involvement of connective tissue, unspecified Other penitentiary 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 Back pain Systemic involvement of connective tissue, unspecified Fibromyalgia Other intermediate frame tender 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 Back pain Systemic involvement of connective tissue, unspecified Other intermediate frame tender 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 Pain in unspecified hand Pain in unspecified ankle and joints of unspecified foot Plantar fasciitis Systemic involvement of connective tissue, unspecified Other intermediate frame tender 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 Abnormal weight gain Fatigue Systemic involvement of connective tissue, unspecified Other penitentiary 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 Systemic involvement of connective tissue, unspecified Other intermediate frame tender 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 Pain in joint Fatigue Back [...] For Visit Copied on Encounter Arthritis Arthritis Systemic [facility] involvement 5 PA-C September. Provider: Ty Crawford of [facility] 9 5794 [facility], 5794 PLLC tissue, [facility] unspecifiedOt MD Veto, [address], her penitentiary [place], [place], (current) [place], [address] Suite [place], drug [id number], 600, [id number], therapyPain [place] in [place] tel:[phone] [place], tel:[phone] hipPolyarthri 63482 [id number]. [id number] tis tel:[phone] lting Provider: Dayanna Gaines , [address], [place], [address]. tel:[phone] lting Provider: Eleazar Witt MD, [facility] [place] [address] [facility] [address], [place], [address]. tel:[phone] ring Provider: Lesia Venegas MD, [address] [place], [place], [id number]. tel:[phone] Arthritis Arthritis [facility] 4 PA-C September. [facility] 9 5794 PLLC, 5794 PLLC [facility], [place], [place], [id number], [id number], [place]. [place] tel:[phone] tel:[phone] Arthritis Arthritis [facility] 2 PA-C September. [facility] 9 5794 PLLC, 5794 PLLC [facility], [address], [place], [id number], [id number], [place]. [place] tel:[phone] tel:[phone] Arthritis Arthritis [facility] 8 PA-C September. [facility] 9 5794 PLLC, 5794 PLLC [facility], [place] [address], [place], [id number], [id number], [place]. [place] tel:[phone] tel:[phone] Arthritis Arthritis [facility] PA-C September. [facility] 9 5794 PLLC, 5794 PLLC [facility], [address], [place], [place], [id number], [id number], [place]. [place] tel:[phone] tel:[phone] Arthritis Arthritis Systemic Feb- [facility] involvement PA-C September. Provider: Ty Mcrae connective 9 5[address] [facility], 5794 PLLC tissue, [facility] unspecifiedOt MD Veto, [address], her intermediate frame tender [place], [place], (current) [place], [address] Suite [place], 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 [id number], 600, [id number], [place]. [place], [place] tel:[phone] [place], tel:[phone] [id number]. [id number] tel:[phone] lting Provider: Dayanna Gaines , [address] [facility] [address], [place], [address]. tel:[phone] lting Provider: Eleazar Witt MD, [facility] [address], [place], [address]. tel:[phone] [facility] Provider: Lesia Venegas MD, [address] [facility], [place], [place], [id number]. tel:[phone] Arthritis Arthritis Dec- [facility] 0- PA-C September. [facility] 9 5794 PLLC, 5794 PLLC [facility], [address], [place], [place], [id number], [id number], [place]. [place] tel:[phone] tel:[phone] Arthritis Arthritis Systemic Nov- [facility] involvement PA-C September. Provider: Ty Crawford of connective 9 5[address] [facility], 5794 PLLC tissue, [facility] Veto, [address], her penitentiary [place], [place], (current) [place], [address] [place], 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 [id number], 600, [id number], [place]. [place], [place] tel:[phone] [place], tel:[phone] [id number]. [id number] tel:[phone] lting Provider: Dayanna panda, [address] [facility] [address], [place], [address]. tel:[phone] lting Provider: Eleazar Witt MD, [facility] [place] [address] [facility] [address], [place], [address]. tel:[phone] ring Provider: Lesia Venegas MD, [address] [place], [place], [id number]. tel:[phone] Arthritis Arthritis Systemic [facility] involvement 8-201 PA-C September. Provider: [facility] connective 9 [address] [facility], 5794 PLLC tissue, [facility] centerOt [facility] Veto, [address], her penitentiary [place], [place], (current) [place], [address] Suite [place], 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 [id number], 600, [id number], [place]. [place], [place] tel:[phone] [place], tel:[phone] [id number]. [id number] tel:[phone] lting Provider: Dayanna panda, [address] [facility] [address], [place], [address]. tel:[phone] lting Provider: Eleazar Witt MD, [facility] [place] [address] [facility] [address], [place], [address]. tel:[phone] ring Provider: Lesia Venegas MD, [address] [place], [place], [id number]. tel:[phone] Arthritis Arthritis Systemic [facility] involvement 6 PA-C September. Provider: [facility] of connective 9 5[address] [facility], 5794 PLLC tissue, [facility] Veto, [address] [place] [address], her penitentiary [place], [place], (current) [place], [address] Suite [place], drug [id number], 600, [id number], therapyFibrom [place]. [place], [place] yalgia tel:[phone] [place], tel:[phone] [id number]. [id number] tel:[phone] lting Provider: Dayanna panda, [address] [place] [address] [address], [place], [address]. tel:[phone] lting Provider: Eleazar Witt MD, [facility] [place] [address] [facility] [address], [place], [address]. tel:[phone] ring Provider: Herrera Gracia MD [place], [address] [facility] [place], [address]. tel:[phone] Arthritis Arthritis Systemic [facility] involvement PA-C September. Provider: [facility] of connective 8 5[address] [facility], 5794 PLLC tissue, [facility] HospitalOt MD Veto, [address], her penitentiary [place], [place], (current) [place], [address] [place], 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 [id number], 600, [id number], [place]. [place], [place] tel:[phone] [place], tel:[phone] [id number]. [id number] tel:[phone] lting Provider: Dayanna panda, [address] [facility] [address], [place], [address]. tel:[phone] lting Provider: Eleazar Witt MD, [facility] [place] [address] [facility] [address], [place], [address]. tel:[phone] ring Provider: Herrera Upton, [address] [facility] [address], [place], [address]. tel:[phone] Arthritis Arthritis Systemic Sep-0 [employer] [facility] involvement ANDREA-Yuliana September. Provider: [facility] of connective 8 5[address] [facility], 5794 PLLC tissue, [facility] unspecifiedOt MD Veto, [address], her penitentiary [place], [place], (current) [place], [address] Suite [place], drug [id number], 600, [id number], therapyFibrom [place]. [place], [place] yalgiaCarpal tel:[phone] [place], tel:[phone]. 065915 syndrome of tel:[phone] lt armCarpal [id number] tunnel lting syndrome of Provider: rt arm Dayanna panda, [address], [place], [address]. tel:[phone] lting Provider: Eleazar Witt MD, [facility] [place] [address] [facility] [address], [place], [address]. tel:[phone] ring Provider: Herrera Upton, [address] [facility] [address], [place], [address]. tel:[phone] Arthritis Arthritis Systemic Jan- Kenia Bridges [facility] Health involvement Lianne Romero Provider: Associates Associates of connective 8 5[address] [facility], 5794 PLLC tissue, [facility] unspecifiedFi MD Justyna, [address], bromyalgiaOth [place], [place], er penitentiary [place], [address] Suite [place], (current) [id number], 600, [id number], 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 [place]. [place], [place] tel:[phone] [place], tel:[phone] [id number]. [id number] tel:[phone] lting Provider: Dayanna panda, [address], [place], [address]. tel:[phone] lting Provider: Eleazar Witt MD, [facility] [place] [address] [facility] [address], [place], [address]. tel:[phone] ring Provider: Herrera Upton, [address] [facility] [address], [place], [address]. tel:[phone] Arthritis Arthritis Systemic Reginald-0 [facility] involvement 6 PA-C September. Provider: [facility] of connective 8 5[address] [facility], 5794 PLLC tissue, [facility] HospitalLuis Laws MD, [address] [place] [address], her intermediate frame tender [place], [place], drug [place], [address] Suite [place], therapyFibrom [id number], 600, [id number], yalgia [place]. [place], [place] tel:[phone] [place], tel:[phone] [id number]. [id number] tel:[phone] lting Provider: Dayanna Gaines , [address] [facility] [address], [place], [address]. tel:[phone] lting Provider: Eleazar Witt MD, [facility] [place] [address] [facility] [address], [place], [address]. tel:[phone] ring Provider: Herrera Upton, [address] [facility] [address], [place], [address]. tel:[phone] Arthritis Arthritis Systemic Mar-1 [facility] involvement 2 PA-C September. Provider: [facility] of connective 8 [address] [facility], 5794 PLLC tissue, [facility] Hospital[facility] MD Veto, [address], her penitentiary [place], [place], 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 [place], [address] Suite [place], [id number], 600, [id number], [place]. [place], [place] tel:[phone] [place], tel:[phone] [id number]. [id number] tel:[phone] lting Provider: Dayanna Gaines , [address] [place] [address] [address], [place], [address]. tel:[phone] lting Provider: Eleazar Witt MD, [facility] [place] [address] [facility] [address], [place], [address]. tel:[phone] ring Provider: Herrera Upton, [address] [facility] [address], [place], [address]. tel:[phone] Arthritis Arthritis Systemic [facility] Health involvement 7- PA-C September. Provider: [facility] of connective 7 5[address] [facility], 5794 PLLC tissue, [facility] unspecifiedOt MD Veto, [address] [place] [address], her penitentiary [place], [place], drug [place], [address] [place], therapyBack [id number], 600, [id number], pain [place]. [place], [place] tel:[phone] [place], tel:[phone] [id number]. [id number] tel:[phone] lting Provider: Dayanna Gaines , [address] [place] [address] [address], [place], [address]. tel:[phone] lting Provider: Eleazar Witt MD, [facility] [place] [address] [facility] [address], [place], [address]. tel:[phone] ring Provider: Herrera Upton, [address] [facility] [address], [place], [address]. tel:[phone] Arthritis Arthritis Systemic Apr- [facility] involvement 0201 PA-C September. Provider: [facility] of connective 7 5[address] [facility], 5794 PLLC tissue, [facility] unspecifiedFi MD Veto, [address], bromyalgiaOth [place], [place], er pen[place]iary [place], [address] Suite [place], drug [id number], 600, [id number], therapyBack [place]. [place], [place] pain tel: [place], tel:[phone]. [phone] tel: [phone] lting Provider: Dayanna Gaines ki, [address], [place], [address]. tel:[phone] lting Provider: Eleazar Witt MD, [facility] [place] [address] [facility] [address], [place], [address]. tel:[phone] ring Provider: Herrera Upton, [address] [place] [address] [address], [place], [address]. tel: [phone] Arthritis Arthritis Systemic [facility] Health involvement [facility]. Provider: Associates Ty of connective 7 5794 [facility] Gr[facility], 5794 PLLC tissue, Katrina Upton, [facility], [address] [place] [address], her penitentiary [place], Road [address] [place], drug [place], [place], [place], therapyPain [id number], [place], [id number], [place], [address]. [place] unspecified tel:42 tel: tel:[phone] [place] [phone] unspecified ankle and joints of unspecified footPlantar fasciitis Arthritis Arthritis Systemic [facility] involvement PA-C September. Provider: Ty Crawford of connective 7 5794 [facility], 5794 PLLC tissueKatrina MD, [facility], [address] [facility], her penitentiary [place], Road [address] [place], drug [place], [place], [place], therapyAbnorm [id number], [place], [id number], [place], [address]. [place] gainFatigue tel:42 tel:315 tel:[phone] Arthritis Arthritis Systemic [facility] involvement PA-C September. Provider: Ty Swanson 7 5794 [facility], 5794 PLLC Katrina giatan MD, [facility], [address] [place] [address], her penitentiary [place], Road [address] [place], 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 [place], [place], [place], [id number], [place], [id number], [place], [address]. [place] tel:[phone] tel:[phone] tel:[phone] Arthritis Arthritis Systemic [facility] involvement PA-C September. Provider: Ty Swanson 7 5794 Herrera SCHWARTZC, 5794 PLLC Katrina gaitan MD, [facility], [address] [facility], her intermediate frame tender [place], Road [address] [place], 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 [place], [place], [place], [id number], [place], [id number], [place], [address]. [place] tel:[phone] tel:[phone] tel:[phone] Arthritis Arthritis [facility] jointFatigueB MD [place]. Provider: Ty beach 7 5794 [facility], 5794 PLLC painFibromyal Katrina Upton, [facility], [address] [place] [address], [place], Road [address] [place], [place], [place], [place], [id number], [place], [id number], [place], [address]. [place] tel:[phone] tel:+[phone] tel:[phone] Arthritis Arthritis [facility] in [facility] jointFatigueB MD [place]. Provider: Ty reynolds pain 6 5794 [facility], 5794 PLLC Katrina Upton, [facility], [facility], [place], Road [address] [place], [place], [place], [place], [id number], [place], [id number], [place], [address]. tel:[phone] tel:[phone] tel:[phone] Family History Family Member Diagnosis Age At Onset No information Immunizations Vaccine Date Status Comments No information Payers Payer name Insurance type Covered constitution party ID Authorization(s) BCBS No Referral Required [id number] Social History Type Description Quantity Date Captured [...] Referred To: ordered Dayanna Hilliard MD [address] [facility] [address] [place], [id number] Ordered: Referrals: Endocrinology, Diabetes and Metabolism. Dayanna Hilliard MD. Location: [address] [place] [address]. Evaluate and treat Referral Ordered: ordered *XRAY [...]
--- OUTSIDE RECORDS SUMMARY | 2019-08-02 12:21 | XMS REPORT | Continuity of Care Document ---
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 Systemic involvement of connective tissue, unspecified Other shelter (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 Fibromyalgia Systemic involvement of connective tissue, unspecified Other shelter (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 Systemic involvement of connective tissue, unspecified Other shelter (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 Fibromyalgia Carpal tunnel syndrome of lt arm Carpal tunnel syndrome of rt arm Systemic involvement of connective tissue, unspecified Fibromyalgia 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 Systemic involvement of connective tissue, unspecified Other shelter 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 Fibromyalgia Systemic involvement of connective tissue, unspecified 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 Systemic involvement of connective tissue, unspecified Other shelter 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 Back pain Systemic involvement of connective tissue, unspecified Fibromyalgia 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 Back pain Systemic involvement of connective tissue, unspecified 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 Pain in unspecified hand Pain in unspecified ankle and joints of unspecified foot Plantar fasciitis Systemic involvement of connective tissue, unspecified 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 Abnormal weight gain Fatigue Systemic involvement of connective tissue, unspecified Other shelter 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 Systemic involvement of connective tissue, unspecified 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 Pain in joint Fatigue Back pain Fibromyalgia Pain in joint Fatigue Back pain Rheumatoid factor negative - Active Anxiety Active GERD Active Migraine Headaches Active Procedures Procedure Date ROUTINE VENIPUNCTURE COMPLETE CBC W/AUTO DIFF WBC RBC SED RATE, AUTOMATED C-REACTIVE PROTEIN ASSAY OF CREATININE TRANSFERASE (AST) (SGOT) ALANINE AMINO (ALT) (SGPT) *HIP, XRAY UNILATERAL PELVIS, 2 - 3 VIEW OFFICE/OUTPATIENT VISIT, EST Results Test Name Date and Time Measure Units Reference Range Abnormal Flag Status Comments Panel Description: CBC Final WBC 12:07:00 10.2 10*3/uL 3.7-10.1 H Final RBC 12:07:00 4.44 10*6/uL 3.50-5.50 Final HGB 12:07:00 14.0 g/dL 12.0-16.0 Final HCT 12:07:00 45.3 % 36.0-48.0 Final MCV 12:07:00 102.0 fL 80.0-100.0 H Final MCH 12:07:00 31.6 pg 26.0-34.0 Final MCHC 12:07:00 31.0 g/dL 31.0-37.0 Final RDW 12:07:00 12.4 % 10.0-15.0 Final PLATELETS 12:07:00 353 10*3/uL 150-500 Final MPV 12:07:00 6.7 fL 6.0-10.0 Final ELEUTERIO# 12:07:00 6.35 10*3/uL 2.10-8.00 Final LYM# 12:07:00 3.03 10*3/uL 1.00-5.00 Final MONO# 12:07:00 0.45 10*3/uL 0.10-1.00 Final EOS# 12:07:00 0.3 10*3/uL 0.0-0.5 Final BASO# 12:07:00 0.1 10*3/uL 0.0-0.2 Final ELEUTERIO% 12:07:00 62.4 % 50.0-80.0 Final LYM% 12:07:00 29.8 % 25.0-50.0 Final MONO% 12:07:00 4.4 % 2.0-10.0 Final EOS% 12:07:00 2.5 % 0.0-5.0 Final BASO% 12:07:00 0.8 % 0.0-4.0 Final Panel Description: HEPATITIS B S AG @ Final HEPATITIS B S AG @ NEGATIVE (NEG) Final Unless otherwise 12:07:00 specified, testing performed by [facility] [place] [address]

Panel Description: ESR Final ESR 12:07:00 3 mm/Hr 0-20 Final Panel Description: HEPATITIS C AB @ Final HEPATITIS C AB @ NEGATIVE (NEG) Final 12:07:00 NOT INFECTED WITH HCV, UNLESS RECENTINFECTION IS SUSPECTED OR OTHER EVIDENCEEXISTS TO INDICATE HCV INFECTION.Unless otherwise specified, testing performed by [facility] [place] [address]

Panel Description: ALT Final ALT 12:07:00 35 U/L 30-65 Final Panel Description: AST Final AST 12:07:00 21 U/L 15-37 Final Panel Description: CREATININE Final CREATININE 12:07:00 0.9 mg/dL 0.6-1.2 Final eGFR 12:07:00 >60 mL/min/1.73m Final Panel Description: CRP Final CRP 12:07:00 0.4 mg/dL 0.0-1.0 Final Advance Directives Directive Yes / No Effective Date File Name No information Encounters Encounter Practice Location Reason(s) Diagnoses Date Provider Providers Description For Visit Copied on Encounter OFFICE/OUTPA Arthritis Arthritis CTD - Systemic [employer] TIE VISIT, [facility] Undifferenti involvement 5- PAOtilia September. Provider: TAHMINA lamar (chief of [address] [facility], [address] [facility] complaint) connective [facility]ad [facility], MD Veto, [address], appleifiedO [place], [place], [address], [address] Suite [place], term [id number], [address], [id number], (current) [place] drug tel:+[phone] [place], tel:[phone] therapyPain [phone] [id number]. [id number] in rt tel:[phone] hipPolyarthr [phone] itis lting Provider: Dayanna Gaines , [address], [place], [address]. tel:[phone] lting Provider: Eleazar Witt MD, [facility] [place] [address], [place], [address]. tel:[phone] [facility] Provider: Lesia Venegas MD, [address] [place], [place], [id number]. tel:[phone] Arthritis Arthritis [facility] 2 PA-C September. [facility] 9 5794 PLLC, 5[address] PLLC [facility], [place], [place], [place], [id number], [id number], [place]. [place] tel:[phone] tel:[phone] Arthritis Arthritis [facility] PA-C September. [facility] 9 5794 PLLC, 5[address] PLLC [facility], [place], [place], [id number], [id number], [place]. [place] tel:[phone] tel:[phone] Arthritis Arthritis Mar- [facility] PA-C September. [facility] 9 5794 PLLC, 5794 PLLC [facility], [place], [place], [id number], [id number], [place]. [place] tel:[phone] tel:[phone] Arthritis Arthritis Systemic Feb- [facility] involvement 7 PA-C September. Provider: Ty [facility] 9 5794 [facility], 5794 PLLC connective [facility] Veto gaitan MD, [address] [place], unspecifiedO [place], [place], [address] [place], [address] Suite [place], term [id number], [address], [id number], (current) [place] 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 tel: [place], tel:[phone]. [id number] tel: [phone] lting Provider: Dayanna panda, [address] [facility] [address], [place], [address]. tel:[phone] lting Provider: Eleazar Witt MD, [facility] [address], [place], [address]. tel:[phone] [facility] Provider: Lesia Venegas MD, [address] [place], [place], [id number]. tel:[phone] Arthritis Arthritis [facility] 0-201 PA-C September. [facility] 9 5794 PLLC, 5794 PLLC [facility], [place], [place], [id number], [id number], [place]. [place] tel: [phone] Arthritis Arthritis Systemic [facility] involvement 7 PA-C September. Provider: [facility] 9 5[address] [facility], 5794 PLLC connective [facility] Veto gaitan MD, [address] [place], unspecifiedO [place], [place], [address] [place], [address] [place], term [id number], 600, [id number], (current) [place] 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 tel: [place], tel:[phone]. [id number] tel: [phone] lting Provider: Dayanna panda, [address], [place], [address]. tel:[phone] lting Provider: Eleazar Witt MD, [facility] [place] [address] [facility] [address], [place], [address]. tel:[phone] ring Provider: Lesia Venegas MD, [address] [place], [place], [id number]. tel:[phone] Arthritis Arthritis Systemic Aug- [facility] involvement PA-C September. Provider: [facility] 9 5[address] [facility]il[facility] PLL[facility], 5794 PLLC connective [facility] tissueVeto MD, [address] [place], unspecifiedO [place], [place], [address] [address] [place], [address] Suite [place], term [id number], [address], [id number], (current) [place] 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 tel:+ [place], tel:[phone]. [phone] tel:[phone] lting Provider: Dayanna Gaines , [address], [place], [address]. tel:[phone] lting Provider: Eleazar Witt MD, [facility] [place] [address] [facility] [address], [place], [address]. tel:[phone] ring Provider: Lesia Venegas MD, [address] [place], [place], [id number]. tel:[phone] Arthritis Arthritis Systemic Feb-0 [facility] involvement PA-C September. Provider: [facility] 9 5794 [facility] PLL[facility], 5794 PLLC connective [facility] tissueVeto MD, [address] [place], unspecifiedO [place], [place], [address], [address] Suite [place], term [id number], [address], [id number], (current) [place] drug tel:+3154 [place], tel:[phone] therapyFibro [phone] [id number]. [id number] myalgia tel:[phone] lting Provider: Dayanna panda, [address] [place] [address] [address]09, [place], [address]. tel:[phone] lting Provider: Eleazar Witt MD, [facility] [place] [address] [facility], [place], [address]. tel:[phone] ring Provider: Herrera Upton, [address] [place] [address] [place], [address]. tel:[phone] Arthritis Arthritis Systemic Dec- [facility] involvement PA-C September. Provider: [facility] 8 5794 [facility] PLLC, 5794 PLLC [facility] Veto gaitan MD, [address] [place], unspecifiedO [place], [place], [address], [address] Suite [place], term [id number], [address], [id number], (current) [place] 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 tel:+5534 [place], tel:[phone]. [id number] tel:[phone] lting Provider: Dayanna panda, [address] [place] [address] 809, [place], [address]. tel:[phone] lting Provider: Eleazar Witt MD, [facility] [place] [address] [facility] [address], [place], [address]. tel:[phone] ring Provider: Herrera Upton, [address] [facility] [place], [address]. tel:[phone] Arthritis Arthritis Systemic Sep-0 [facility] involvement PA-C September. Provider: [facility] 8 5794 Abhilash PARMAR, 5794 PLLC [facility] Veto gaitan MD, [address] [place], unspecifiedO [place], [place], [address] [address] [place], [address] [facility], term [id number], [address], [id number], (current) [place] drug tel:+ [place], tel:[phone] therapyFibro [phone] [id number]. [id number] myalgiaCarpa tel:[phone] syndrome of lting lt armCarpal Provider: nancy Dayanna syndrome of Laki[place] rt arm ki, [address] [facility] [address], [place], [address]. tel:[phone] lting Provider: Eleazar Witt MD, [facility] [place] [address] [facility] [address], [place], [address]. tel:[phone] ring Provider: Herrera Upton, [address] [place] [address] D, [place], [address]. tel:[phone] Arthritis Arthritis Systemic Jan- [facility] Health involvement Lianne Nick Provider: [facility] 8 5794 [facility]il[facility] PLLC, 5794 PLLC connective [facility] tissue, MD Justyna, [address], unspecifiedF [place], [place], ibromyalgiaO [place], [address] Suite [place], ther long [id number], [address], [id number], term [place]. [place], [place] (current) tel:+315 [place], tel:[phone] 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 [id number]. [id number] tel:[phone] lting Provider: Dayanna Gaines , [address] [facility] [address]09, [place], [address]. tel:[phone] lting Provider: Eleazar Witt MD, [facility] [place] [address] [facility] [address], [place], [address]. tel:[phone] [facility] Provider: Herrera Upton, [address] [place] [address] [address], [place], [address]. tel:[phone] Arthritis Arthritis Systemic Reginald- [facility] Health involvement KIMBERLY September. Provider: [facility] 8 5794 [facility]il[facility] PLLC, 5794 PLLC connective [facility] tissueVeto MD, [address] [place], unspecifiedO [place], [place], [address], [address] Suite [place], term drug [id number], [address], [id number], therapyFibro [place]. [place], [place] myalgia tel:+ [place], tel:[phone]. [id number] tel:[phone] lting Provider: Dayanna panda, [address] [facility] [address], [place], [address]. tel:[phone] lting Provider: Eleazar Witt MD, [facility] [place] [address] [facility] [address], [place], [address]. tel:[phone] ring Provider: Herrera Upton, [address] [place] [address] [place], [address]. tel:[phone] Arthritis Arthritis Systemic Aug- [facility] involvement 2-201 PA-C September. Provider: [facility] [address] [facility], 5794 [facility] connective [facility] tissueVeto MD, [address] [place], unspecifiedO [place], [place], [address], [address] Suite [place], term drug [id number], [address], [id number], therapy [place], [place] tel: [place], tel:[phone]. [id number] tel:[phone] lting Provider: Dayanna panda, [address] [facility] [address], [place], [address]. tel:[phone] lting Provider: Eleazar Witt MD, [facility] [place] [address] [facility] [address], [place], [address]. tel:[phone] ring Provider: Herrera Upton, [address] [place] [address] [place], [address]. tel:[phone] Arthritis Arthritis Systemic May- [facility] involvement 7 PA-C September. Provider: [facility] 5794 [facility]il[facility] PLLC, 5794 PLLC [facility] Veto gaitan MD, [address] [place], unspecifiedO [place], [place], [address], [address] Suite [place], term drug [id number], [address], [id number], therapyBack [place]. [place], [place] pain tel:+ [place], tel:[phone]. [id number] tel:[phone] lting Provider: Dayanna panda, [address] [place] [address] [address], [place], [address]. tel:[phone] lting Provider: Eleazar Witt MD, [facility] [place] [address] [facility] [address], [place], [address]. tel:[phone] [facility] Provider: Herrera Gracia MD [place]nel[place], [address] [facility] [place], [address]. tel:[phone] Arthritis Arthritis Systemic [facility] involvement 0 PA-C September. Provider: [facility] 5[address] Abhilash [facility], 5794 PLLC connective [facility] Veto gaitan MD, [address] [place], unspecifiedF [place], [place], ibromyalgiaO [place], [address] Suite [place], ther long [id number], [address], [id number], term drug [place], [place] therapyBack tel:+ [place], tel:[phone] pain [id number]. [id number] tel:[phone] lting Provider: Dayanna panda, [address] [place] [address] [address], [place], [address]. tel:[phone] lting Provider: Eleazar Witt MD, [facility] [place] [address] [facility] [address], [place], [address]. tel:[phone] ring Provider: Herrera Upton, [address], [place], [address]. tel: [phone] Arthritis [facility]ritis Systemic [facility] involvement an Bird. Provider: [facility] 7 5794 Herrera Gracia PLLC, 5794 PLLC jones Upton, [facility], [place], [address] [facility], unspecifiedO [place], [address] [place], the[place] long [place], D, [place], term drug [id number], [place], [id number], [place], [address]. [place] in tel: tel: tel: [phone] handPain in unspecified ankle and joints of unspecified footPlantar fasciitis Arthritis Arthritis Systemic [facility] Health involvement PA-C September. Provider: [facility] 7 5794 Herrera Gracia PLLC, 5794 PLLYuliana Upton, [facility], [place], [address] [facility], unspecifiedO [place], [address] [place], the[place], [place], [place], term drug [id number], [place], [id number], [place], [address]. [place] mal weight tel: tel:[phone] tel: gainFatigue [phone] Arthritis Arthritis Systemic [facility] involvement PA-C September. Provider: [facility] 7 5794 Herrera Gr[facility], 5794 PLLC jones Upton, [facility], [place], [address] [facility], unspecifiedO [place], [address] [place], the[place], [place], [place], term drug [id number], [place], [id number], [place], [address]. [place] tel: tel:315 tel: [phone] Arthritis Arthritis Systemic [facility] Health involvement 1- KIMBERLY September. Provider: [facility] 7 5794 Herrera Gr[facility]C, 5794 PLLC jones Upton, [facility], [place], [address] [facility], unspecifiedO [place], [address] [place], the[place], D, [place], term drug [id number], [place], [id number], [place], [address]. [place] tel:+[phone] tel:+ tel:[phone] Arthritis Arthritis Pain in [facility] jointFatigue 4 MD [address]. Provider: Ty Crawford Back 7 5794 Her[facility] Gr[facility], 5794 PLLC painFibroalvina Upton, [facility], [address] [facility], [place], Road Suite [place], [place], [place], [place], [id number], [place], [id number], [place], [address]. [place] tel:+[phone] tel:+[phone] tel: [phone] Arthritis Arthritis Pain in [facility] jointFatigue MD [address]. Provider: Ty Crawford Back pain 6 5794 Herrera Gracia [facility], 5794 PLLC [facility], [address] [facility], [place], Road Suite [place], [place], [place], [place], [id number], [place], [id number], [place], [address]. [place] tel:+[phone] tel:[phone] tel:[phone] Family History Family Member Diagnosis Age At Onset No information Immunizations Vaccine Date Status Comments No information Payers Payer name Insurance type Covered democrat ID Authorization(s) BCBS No Referral Required [id number] Social History Type Description Quantity Date Captured Comments Alcohol Use Details 5 drinks weekly Caffeine Use Details Tobacco Use Status Ex-smoker Smoking Status Former smoker Non-Smoking Tobacco : No Details Available : No Details Available 2018 Use Details Sex Female Vital Signs Date / Height Weight BMI Pulse Blood Temperature Respiratory Body Head BMI Pulse Inhaled Time: Rate Pressure Rate Surface Circumference percentile Ox Ox Area 67.00 192.00 30.0 130/80 -2019 in lbs 7 mm[Hg] 11:30 kg/m AM eter (2) Chief Complaint And Reason For Visit Most recent encounter only, dated '05/25/2019 11:20'. CTD - Undifferentiated (chief complaint). Description: The pain severity is 8/10. Patient is experiencing generalized morning stiffness for all day and fatigue. Patient denies having hair loss, infection, fever, rash, oral ulcers (mouth sores) and photosensitivity.The patient is currently taking Nabumetone with no side effects and Plaquenil with [...] Referred To: ordered Dayanna Hilliard MD [address] [facility] [address] [place], [phone] Ordered: Referrals: Endocrinology, Diabetes and Metabolism. Dayanna Hilliard MD. Location: [address] [place] [address]. Evaluate and treat Referral Ordered: ordered *XRAY ENTIRE SPINE AP/LAT Appointment Patt Brenner BOOKED Appointment Patt Brenner BOOKED History Of Present Illness Encounter Date Complaint History Of Present Illness CTD - Undifferentiated The pain severity is 8/10. Patient is experiencing generalized morning stiffness for all day and fatigue. Patient denies having hair loss, infection, fever, rash, oral ulcers (mouth sores) and photosensitivity.The patient is currently taking Nabumetone with no side effects and Plaquenil with [...]
--- OUTSIDE RECORDS SUMMARY | 2019-08-02 12:21 | XMS REPORT | Continuity of Care Document ---
:1980 Author Organization [facility] Address [address] [place], [place] [id number] Phone Care Team Providers Name Role Phone [...] decrease by 1 tab every 5 days valacyclovir 500 mg take 1 tablet by 500 MG - No Longer tablet oral route every Active day Problems Condition Effective Dates (start - Clinical Status Comments stop) Systemic involvement of connective tissue, unspecified Other detention (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 Pain in rt hip Polyarthritis Systemic involvement of connective tissue, unspecified Other detention (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 Systemic involvement of connective tissue, unspecified Other detention (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 Systemic involvement of connective tissue, unspecified 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 carman (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 Systemic involvement of connective tissue, unspecified 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 carman (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 Fibromyalgia Systemic involvement of connective tissue, unspecified 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 carman (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 Systemic involvement of connective tissue, unspecified 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 carman (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 Fibromyalgia Carpal tunnel syndrome of lt arm Carpal tunnel syndrome of rt arm Systemic involvement of connective tissue, unspecified Fibromyalgia 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 carman (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 Systemic involvement of connective tissue, unspecified 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 carman 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 Fibromyalgia Systemic involvement of connective tissue, unspecified Other detention 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 Systemic involvement of connective tissue, unspecified Other detention 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 Back pain Systemic involvement of connective tissue, unspecified Fibromyalgia 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 carman 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 Back pain Systemic involvement of connective tissue, unspecified Other detention 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 Pain in unspecified hand Pain in unspecified ankle and joints of unspecified foot Plantar fasciitis Systemic involvement of connective tissue, unspecified Other detention 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 Abnormal weight gain Fatigue Systemic involvement of connective tissue, unspecified 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 carman 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 Systemic involvement of connective tissue, unspecified 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 carman 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 Pain in joint Fatigue Back [...] Visit Copied on Encounter Arthritis Arthritis Systemic [facility] involvement PA-C September. Provider: Ty Crawford of [facility] 9 [address] [facility] [facility], 5794 PLLC tissue, [facility] unspecifiedOt MD Veto, [address], her terminal carman [place], [place], (current) [place], [address] Suite [place], drug [id number], 600, [id number], therapyPain [place]. [place] in [place] tel:[phone] [place], tel:[phone] hipPolyarthri [phone] [id number]. [id number] tis tel:[phone] lting Provider: Dayanna Gaines , [address] [facility] [address], [place], [address]. tel:[phone] lting Provider: Eleazar Witt MD, [facility] [place] [address] [facility] [address], [place], [address]. tel:[phone] ring Provider: Lesia Venegas MD, [address] [place], [place], [id number]. tel:[phone] Arthritis Arthritis [facility] PA-C September. [facility] 9 5794 PLLC, 5794 PLLC [facility], [place], [place], [id number], [id number], [place]. [place] tel:[phone] tel:[phone] Arthritis Arthritis [facility] PA-C September. [facility] 9 5794 PLLC, 5794 PLLC [facility], [address], [place], [id number], [id number], [place]. [place] tel:[phone] tel:[phone] Arthritis Arthritis [facility] PA-C September. [facility] 9 5794 PLLC, 5794 PLLC [facility], [address], [place], [id number], [id number], [place]. [place] tel:[phone] tel:[phone] Arthritis Arthritis Systemic Feb- [facility] involvement PA-C September. Provider: [facility] of connective 9 [address] [facility], 5794 PLLC tissue, [facility] unspeccitizens baptistOt MD Veto, [address] [place] [address], her [place], [place], (current) [place], [address] Suite [place], 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 [id number], 600, [id number], [place]. [place] tel:[phone] [place], tel:[phone] [id number]. [id number] tel:[phone] lting Provider: Dayanna Gaines , [address], [place], [address]. tel:[phone] lting Provider: Eleazar Witt MD, [facility] [address], [place], [address]. tel:[phone] ring Provider: Lesia Venegas MD, [address], [place], [id number]. tel:[phone] Arthritis Arthritis Dec- [facility] 0- PA-C September. [facility] 9 5794 PLLC, 5794 PLLC [facility], [address], [place], [place], [id number], [id number], [place]. [place] tel:[phone] tel:[phone] Arthritis Arthritis Systemic Nov- [facility] involvement PA-C September. Provider: Ty Crawford of connective 9 [address] [facility], 5794 PLLC tissue, [facility] Veto, [address] [place] [address], her detention [place], [place], (current) [place], [address] [place], 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 [id number], 600, [id number], [place]. [place], [place] tel:[phone] [place], tel:[phone] [id number]. [id number] tel:[phone] lting Provider: Dayanna Gaines , [address] [facility] [address], [place], [address]. tel:[phone] lting Provider: Eleazar Witt MD, [facility] [place] [address] [facility] [address], [place], [address]. tel:[phone] ring Provider: Lesia Venegas MD, [address] [place], [place], [id number]. tel:[phone] Arthritis Arthritis Systemic Aug- [facility] involvement 8 PA-C September. Provider: [facility] connective 9 [address], 5794 PLLC tissue, [facility] Laws MD, [address] [place] [address], her detention [place], [place], (current) [place], [address] Suite [place], 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 [id number], 600, [id number], [place]. [place], [place] tel:[phone] [place], tel:[phone] [id number]. [id number] tel:[phone] lting Provider: Dayanna Gaines , [address] [facility] [address], [place], [address]. tel:[phone] lting Provider: Eleazar Witt MD, [facility] [place] [address] [facility] [address], [place], [address]. tel:[phone] ring Provider: Lesia Venegas MD, [address] [place], [place], [id number]. tel:[phone] Arthritis Arthritis Systemic Jul-0 [facility] involvement 6 PA-C September. Provider: [facility] connective 9 [address], 5794 PLLC tissue, [facility] Laws MD, [address], her detention [place], [place], (current) [place], [address] [place], drug [id number], 600, [id number], therapyFibrom [place]. [place], [place] yalgia tel:[phone] [place], tel:[phone] [id number]. [id number] tel:[phone] lting Provider: Dayanna panda, [address] [place] [address] [address], [place], [address]. tel:[phone] lting Provider: Eleazar Witt MD, [facility] [place] [address] [facility] [address], [place], [address]. tel:[phone] ring Provider: Herrera Upton, [address] [place] [address], [address]. tel:[phone] Arthritis Arthritis Systemic Dec- [facility] involvement 8-201 PA-C September. Provider: [facility] connective 8 [address], 5794 PLLC [facility], [facility] unspecifiedOt MD Veto, [address], her terminal carman [place], [place], (current) [place], [address] [place], 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 [id number], 600, [id number], [place]. [place], [place] tel:[phone] [place], tel:[phone] [id number]. 628189 tel:[phone] lting Provider: Dayanna panda, [address] [facility] [address], [place], [address]. tel:[phone] lting Provider: Eleazar Witt MD, [facility] [place] [address] [facility] [address], [place], [address]. tel:[phone] ring Provider: Herrera Upton, [address] [place] [address], [place], [address]. tel:[phone] Arthritis Arthritis Systemic Sep-0 [facility] involvement 7- KIMBERLY September. Provider: [facility] connective 8 [address], 5794 PLLC tissue, [facility] unspecifiedOt MD Veto, [address], her detention [place], [place], (current) [place], [address] [place], drug [id number], 600, [id number], therapyFibrom [place]. [place], [place] yalgiaCarpal tel:[phone] [place], tel:[id number]. [id number] syndrome of tel:[phone] lt armCarpal [phone] tunnel lting syndrome of Provider: rt arm Dayanna panda, [address] [facility] [address], [place], [address]. tel:[phone] lting Provider: Eleazar Witt MD, [facility] [place] [address] [facility] [address], [place], [address]. tel:[phone] ring Provider: Herrera Gracia MD [place], [address] [facility] [place], [address]. tel:[phone] Arthritis Arthritis Systemic [facility] involvement Lianne Romero Provider: [facility] connective 8 [address] [facility], 5794 PLLC tissue, [facility] unspecifiedHayes Jansen MD, [address], bromyalgiaOth [place], [place], er terminal carman [place], [address] [place], (current) [id number], [address], [id number], 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 [place]. [place], [place] tel:[phone] [place], tel:[phone] [id number]. [id number] tel:[phone] lting Provider: Dayanna panda, [address] [facility] [address], [place], [address]. tel:[phone] lting Provider: Eleazar Witt MD, [facility] [place] [address] [facility] [address], [place], [address]. tel:[phone] ring Provider: Herrera Upton, [address] [facility] [address], [place], [address]. tel:[phone] Arthritis Arthritis Systemic Reginald-0 [facility] involvement 6 PA-C September. Provider: [facility] connective 8 [address], 5794 PLLC tissue, [facility] Laws MD, [address], her terminal carman [place], [place], drug [place], [address] Suite [place], therapyFibrom [id number], [address], [id number], yalgia [place]. [place], [place] tel:[phone] [place], tel:[phone] [id number]. [id number] tel:[phone] lting Provider: Dayanna panda, [address], [place], [address]. tel:[phone] lting Provider: Eleazar Witt MD, [facility] [address], [place], [address]. tel:[phone] ring Provider: Herrera Upton, [address] [facility] [address], [place], [address]. tel:[phone] Arthritis Arthritis Systemic Aug- [facility] involvement PA- September. Provider: [facility] of connective 8 [address] [facility], 5794 PLLC tissue, [facility] Veto, [address], her detention [place], [place], 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 [place], [address] Suite [place], [id number], 600, [id number], [place]. [place], [place] tel:[phone] [place], tel:[phone] [id number]. [id number] tel:[phone] lting Provider: Dayanna panda, [address], [place], [address]. tel:[phone] lting Provider: Eleazar Witt MD, [facility] [place] [address] [facility] [address], [place], [address]. tel:[phone] ring Provider: Herrera Upton, [address] [place] [address] [address], [place], [address]. tel:[phone] Arthritis Arthritis Systemic [facility] involvement 7 PA-C September. Provider: [facility] connective 7 [address], 5794 PLLC tissue, [facility] unspecifiedOt MD Veto, [address], her detention [place], [place], drug [place], [address] [place], therapyBack [id number], 600, [id number], pain [place]. [place], [place] tel:[phone] [place], tel:[phone]. [id number] tel:[phone] lting Provider: Dayanna Gaines , [address] [facility] [address], [place], [address]. tel:[phone] lting Provider: Eleazar Witt MD, [facility] [place] [address] [facility] [address], [place], [address]. tel:[phone] ring Provider: Herrera Upton, [address] [place] [address] [address], [place], [address]. tel:[phone] Arthritis Arthritis Systemic [facility] involvement 0201 PA-C September. Provider: [facility] connective 7 [address] [facility], 5794 PLLC tissue, [facility] unspecifiedFi MD Veto, [address], bromyalgiaOth [place], [place], [place] detention [place], [address] Suite [place], drug [id number], 600, [id number], therapyBack [place]. [place], [place] pain tel:[phone] [place], tel:[phone] [id number]. [id number] tel:[phone] lting Provider: Dayanna Eder , [address], [place], [address]. tel:[phone] lting Provider: Eleazar Witt MD, [facility] [place] [address] [facility] [address], [place], [address]. tel:[phone] [facility] Provider: Herrera Upton, [address] [facility] [address], [place], [address]. tel:[phone] Arthritis Arthritis Systemic [facility] Referring Health Health involvement 6 ri Marge. Provider: Ty Crawford of connective 7 5794 Herrera SCHWARTZC, 5794 PLLC tissue, Katrina Upton, [facility], [address] [place] [address], her detention [place], Road [address] [place], drug [place], D, [place], therapyPain [id number], [place], [id number], [place], [address]. [place] unspecified tel:[phone] tel:[phone] tel:[phone] [phone] unspecified ankle and joints of unspecified footPlantar fasciitis Arthritis Arthritis Systemic [facility] involvement PA-C September. Provider: [facility] connective 7 [address] Gracia PLLC, 5794 PLLC tissue, Katrina Upton, [facility], [address] [facility], her terminal carman [place], Road [address] [place], drug [place], [place], [place], therapyAbnorm [id number], [place], [id number], [place], [address]. [place] gainFatigue tel:[phone] tel:[phone] tel:[phone] Arthritis Arthritis Systemic October-0 [facility] involvement 3 PA-C September. Provider: Associates Ty of connective 7 5794 [address] Gracia PLLC, 5794 PLLC tissue, Katrina Upton, [facility], [address] [facility], her detention [place], Road [address] [place], 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 [place], [place], [place], [id number], [place], [id number], [place], [address]. [place] tel:[phone] tel:[phone] tel:[phone] Arthritis Arthritis Systemic [facility] involvement KIMBERLY September. Provider: Associates Ty of connective 7 5794 Herrera Gracia PLLC, 5794 PLLC tissue, Katrina Upton, [facility], [address] [facility], her terminal carman [place], Road [address] [place], 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 [place], [place], [place], [id number], [place], [id number], [place], [address]. [place] tel:[phone] tel:315 tel:[phone] Arthritis Arthritis Pain in [facility] jointFatigueB MD [place]. Provider: [facility] 7 5794 [facility] Gr[facility]C, 5794 PLLC painFibromyal Katrina Upton, [facility], [address] [place] [address], [place], Road [address] [place], [place], D, [place], [id number], [place], [id number], [place], [address]. [place] tel:[phone] tel:[phone] tel:[phone] Arthritis Arthritis Pain in [facility] jointFatigueB MD [place]. Provider: [facility] pain 6 5794 Herrera Gracia [facility]C, 5794 PLLC Katrina Upton, [facility], [address] [facility], [place], Road [address] [place], [place], [place], [place], [id number], [place], [id number], [place], [address]. [place] tel:+[phone] tel:[phone] tel:[phone] Family History Family Member Diagnosis Age At Onset No information Immunizations Vaccine Date Status Comments No information Payers Payer name Insurance type Covered alliance party ID Authorization(s) BCBS No Referral Required [id number] Social History Type Description Quantity Date Captured [...] Referral Referred To: ordered Dayanna Hilliard MD [address] [place] [address] [address]09 [place], [id number] Ordered: Referrals: Endocrinology, Diabetes and Metabolism. Dayanna Hilliard MD. Location: [address] [place] [address]. Evaluate and treat Referral Ordered: ordered *XRAY [...]
--- OUTSIDE RECORDS SUMMARY | 2019-08-02 12:22 | XMS REPORT | Continuity of Care Document ---
:1980 Author Organization [facility] Address [address], [place] [id number] Phone Care Team Providers Name Role Phone [...] decrease by 1 tab every 5 days Evoxac 30 mg capsule TAKE 1 CAPSULE BY - No Longer MOUTH 2 TIMES Active DAILY valacyclovir 500 mg take 1 tablet by 500 MG - No Longer tablet oral route every Active day Problems Condition Effective Dates (start - Clinical Status Comments stop) Systemic involvement of connective tissue, unspecified Other nursing home (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 Pain in rt hip Polyarthritis Systemic involvement of connective tissue, unspecified Other nursing home (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 Systemic involvement of connective tissue, unspecified 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 Systemic involvement of connective tissue, unspecified Other nursing home (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 Systemic involvement of connective tissue, unspecified 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 Fibromyalgia Systemic involvement of connective tissue, unspecified 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 Systemic involvement of connective tissue, unspecified 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 Fibromyalgia Carpal tunnel syndrome of lt arm Carpal tunnel syndrome of rt arm Systemic involvement of connective tissue, unspecified Fibromyalgia Other nursing home (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 Systemic involvement of connective tissue, unspecified 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 supervisor 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 Fibromyalgia Systemic involvement of connective tissue, unspecified 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 supervisor drug therapy Systemic involvement of connective tissue, unspecified 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 supervisor drug therapy Back pain Systemic involvement of connective tissue, unspecified Fibromyalgia Other nursing home drug therapy Back pain Systemic involvement of connective tissue, unspecified 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 supervisor drug therapy Pain in unspecified hand Pain in unspecified ankle and joints of unspecified foot Plantar fasciitis Systemic involvement of connective tissue, unspecified Other nursing home drug therapy Abnormal weight gain Fatigue Systemic involvement of connective tissue, unspecified 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 supervisor drug therapy Systemic involvement of connective tissue, [...] Visit Copied on Encounter Arthritis Arthritis Systemic [facility] involvement C September. Provider: Ty [facility] 9 5794 [facility], 5794 PLLC tissue, [facility] unspecifiedOt MD [place], [address], her nursing home [place], Quinn [place], (current) [place], [address] Suite [place], drug [id number], 600, [id number], therapyPain [place]. [place], [place] in [place] tel:[phone] [place], tel:[phone] hipPolyarthri [phone] [id number]. [id number] tis tel:[phone] lting Provider: Dayanna Gaines , [address], [place], [address]. tel:[phone] lting Provider: Eleazar Witt MD, [facility] [place] [address] [facility] [address], [place], [address]. tel:[phone] ring Provider: Lesia Venegas MD, [address] [place], [place], [id number]. tel:[phone] Arthritis Arthritis [facility] [place] September. [facility] 9 5794 PLLC, 5794 PLLC [facility], [place], [place], [place], [id number], [id number], [place]. [place] tel:[phone] tel:[phone] Arthritis Arthritis [facility] C September. [facility] 9 5794 PLLC, 5794 PLLC [facility], [place], [place], [place], [id number], [id number], [place]. [place] tel:[phone] tel:[phone] Arthritis Arthritis [facility] 1- PA-C September. [facility] 9 5794 PLLC, 5794 PLLC [facility], [place], [place], [place], [id number], [id number], [place]. [place] tel:[phone] tel:[phone] Arthritis Arthritis [facility] PA-C September. [facility] 9 5794 PLLC, 5794 PLLC [facility], [place], [place], [place], [id number], [id number], [place]. [place] tel:[phone] tel:[phone] Arthritis Arthritis Systemic [facility] involvement PA-C September. Provider: Ty Crawford of connective 9 5[address] [facility], 5794 PLLC tissue, [facility] unspecifiedOt MD Veto, [address] [place], her terminal supervisor [place], Quinn [place]en[place], (current) [place], [address] Suite [place], drug therapy [id number], 600, [id number], [place]. [place], [place] tel:[phone] [place], tel:[phone] [id number]. [id number] tel:[phone] lting Provider: Dayanna Gaines , [address], [place], [address]. tel:[phone] lting Provider: Eleazar Witt MD, [facility] [place] [address] [facility] [address], [place], [address]. tel:[phone] [facility] Provider: Lesia Venegas MD, [address], [place], [id number]. tel:[phone] Arthritis Arthritis [facility] 0- PA-C September. [facility] 9 5794 PLLC, 5794 PLLC [facility], [place], [place], [place], [id number], [id number], [place]. [place] tel:[phone] tel:[phone] Arthritis Arthritis Systemic [facility] involvement PA-C September. 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 [place], [place] tel:[phone] [place], tel:[phone] [id number]. [address] tel:[phone] lting Provider: Dayanna panda, [address], [place], [address]. tel:[phone] lting Provider: Eleazar Witt MD, [facility] [place] [address] [facility] [address], [place], [address]. tel:[phone] [facility] Provider: Lesia Venegas MD, [address] [place], [place], [id number]. tel:[phone] Arthritis Arthritis Systemic [facility] involvement PA-C September. Provider: [facility] of connective 9 5[address] [facility], 5794 PLLC tissue, [facility] unspecparrisOt MD Veto, [address] [place], her nursing home [place], Quinn [place], (current) [place], [address] Suite [place], drug therapy [id number], 600, [id number], [place]. [place], [place] tel:[phone] [place], tel:[phone] [id number]. [id number] tel:[phone] lting Provider: Dayanna panda, [address], [place], [address]. tel:[phone] lting Provider: Eleazar Witt MD, [facility] [place] [address], [place], [address]. tel:[phone] ring Provider: Lesia Venegas MD, [address] [facility], [place], [place], [id number]. tel:[phone] Arthritis Arthritis Systemic [facility] involvement PA-C September. Provider: [facility] of connective 9 5[address] [facility], 5794 PLLC tissue, [facility] Center[facility] Laws MD, [address] [place] [address], her nursing home [place], Quinn [place], (current) [place], [address] Suite [place], drug [id number], 600, [id number], therapyFibrom [place]. [place], [place] yalgia tel:[phone] [place], tel:[phone] [id number]. [address] tel:[phone] lting Provider: Dayanna panda, [address], [place], [address]. tel:[phone] lting Provider: Eleazar Witt MD, [facility] [address], [place], [address]. tel:[phone] ring Provider: Herrera Gracia MD [place], [address] [facility] [place], [address]. tel:[phone] Arthritis Arthritis Systemic [facility] involvement PA-C September. 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 [place], [place] tel:[phone] [place], tel:[phone] [id number]. 025130 tel:[phone] lting Provider: Dayanna panda, [address], [place], [address]. tel:[phone] lting Provider: Eleazar Witt MD, [facility] [place] [address] [facility] [address], [place], [address]. tel:[phone] ring Provider: Herrera Upton, [address] [facility] [address], [place], [address]. tel:[phone] Arthritis Arthritis Systemic Sep-0 [facility] involvement KIMBERLY September. Provider: [facility] of connective 8 5[address] [facility], 5794 PLLC tissue, [facility] unspecLuis Laws MD, [address] [place] [address], her terminal supervisor [place], Quinn [place], (current) [place], [address] Suite [place], drug [id number], [address], [id number], therapyFibrom [place]. [place], [place] yalgiaCarpal tel:[phone] [place], tel:[phone] [id number]. 318113 syndrome of tel:[phone] lt armCarpal [phone] tunnel lting syndrome of Provider: rt chiquis Gaines , [address] [facility] [address], [place], [address]. tel:[phone] lting Provider: Eleazar Witt MD, [facility] [place] [address] [facility] [address], [place], [address]. tel:[phone] ring Provider: Herrera Upton, [address] [facility] [address], [place], [address]. tel:[phone] Arthritis Arthritis Systemic Aug- [facility] Health involvement Lianne Romero Provider: [facility] of connective 8 5794 [facility], 5794 PLLC tissue, [facility] unspecifiedFi MD Justyna, [address] [place], bromyalgiaOth [place], [place], er terminal supervisor [place], [address] Suite [place], (current) [id number], [address], [id number], drug therapy [place]. [place], [place] tel:[phone] [place], tel:[phone] [id number]. [address] tel:[phone] lting Provider: Dayanna Gaines , [address] [place] [address] 80, [place], [address]. tel:[phone] lting Provider: Eleazar Witt MD, [facility] [place] [address] [facility] [address], [place], [address]. tel:[phone] ring Provider: Herrera Upton, [address] [place] [address] [address], [place], [address]. tel:[phone] Arthritis Arthritis Systemic Reginald-0 [facility] involvement PA-C September. Provider: Associates [facility] of connective 8 5[address] [facility], 5794 PLLC tissue, [facility] Laws MD, [address] [place] [address], her terminal supervisor [place], Quinn [place], drug [place], [address] Suite [place], therapyFibrom [id number], 600, [id number], yalgia [place]. [place], [place] tel:[phone] [place], tel:[phone] [id number]. 5[address] tel:[phone] lting Provider: Dayanna Gaines , [address] [place] [address] 809, [place], [address]. tel:[phone] lting Provider: Eleazar Witt MD, [facility] [place] [address] [facility] [address], [place], [address]. tel:[phone] ring Provider: Herrera Upton, [address] [place] [address] [address], [place], [address]. tel:[phone] Arthritis Arthritis Systemic Aug- [facility] involvement PA-C September. Provider: [facility] of connective 8 5[address] [facility], 5794 PLLC tissue, [facility] Center[facility] Laws MD, [address] [place] [address], her terminal supervisor [place], Quinn [place], drug therapy [place], [address] Suite [place], [id number], 600, [id number], [place]. [place], [place] tel:[phone] [place], tel:[phone] [id number]. 55[address] tel:[phone] lting Provider: Dayanna panda, [address] [facility] [address], [place], [address]. tel:[phone] lting Provider: Eleazar Witt MD, [facility] [place] [address] [facility] [address], [place], [address]. tel:[phone] ring Provider: Herrera Upton, [address] [place] [address], [place], [address]. tel:[phone] Arthritis Arthritis Systemic May- [facility] involvement 7 PA-C September. Provider: [facility] of connective 7 5[address] [facility], 5794 PLLC tissue, [facility] unspecifiedOt MD Veto, [address] [place], her nursing home [place], Quinn [place], drug [place], [address] [place], therapyBack [id number], [address], [id number], pain [place]. [place], [place] tel:[phone] [place], tel:[phone]. 6467[address] tel:[phone] lting Provider: Dayanna panda, [address] [facility] [address], [place], [address]. tel:[phone] lting Provider: Eleazar Witt MD, [facility] [place] [address] [facility] [address], [place], [address]. tel:[phone] ring Provider: Herrera Upton, [address] [place] [address] [address], [place], [address]. tel:[phone] Arthritis Arthritis Systemic Nov- [facility] involvement 0-201 PA-C September. Provider: Associates [facility] of connective 7 5[address] [facility], 5794 PLLC tissue, Katrina Tobin [facility] unspecifiedFi MD Veto, [address] [place], [facility] [place], Quinn [place], er nursing home [place], [address] [place], drug [id number], 600, [id number], therapyBack [place]. [place], [place] pain tel:[phone] [place], tel:[phone]. [address] tel:[phone] lting Provider: Dayanna Gaines ki, [address], [place], [address]. tel:[phone] lting Provider: Eleazar iWtt MD, [facility] [place] [address] [facility] [address], [place], [address]. tel:[phone] ring Provider: Herrera Upton, [address] [facility] [address], [place], [address]. tel:[phone] Arthritis Arthritis Systemic [facility] Referring Health Health involvement 6 [facility]. Provider: Associates Associates of connective 7 5794 Herrera Gracia PLLC, 5794 PLLC Katrina gaitan MD, [facility]juan carlos unspeccitizens baptistOt [place], [address] [facility], her nursing home [place], Road [address] [place], drug [place], D, [place], therapyPain [id number], [place], [id number], [place], [address]. [place] unspecified tel:[phone] tel:[phone] tel:[phone] [place] [phone] [id number] unspecified ankle and joints of unspecified footPlantar fasciitis Arthritis Arthritis Systemic [place] [facility] involvement PA-C September. Provider: Ty [facility] 7 5794 Herrera SCHWARTZC, 5794 PLLC Katrina gaitan MD, [place] unspeccitizens baptistOt [place], [address] [facility], her terminal supervisor [place], [address] [place], drug [place], D, [place], therapyAbnorm [id number], [place], [id number], [place], [address]. [place] gainFatigue tel:42 tel: tel: [phone] Arthritis Arthritis Systemic [facility] involvement PA-C September. Provider: Associates Ty [facility] 7 5794 Herrera Gracia PLLC, 5794 PLLC tissueKatrina MD, [facility], [address] [facility], her nursing home [place], Road [address] [place], drug therapy [place], [place], [place], [id number], [place], [id number], [place], [address]. [place] tel:+42 tel: tel: [phone] Arthritis Arthritis Systemic [facility] involvement PA-C September. Provider: Associates Ty [facility] 7 5794 Herrera Gracia PLLC, 5794 PLLC tissue, Katrina Upton, [facility], [address] [facility], her nursing home [place], Road [address] [place], drug therapy [place], [place], [place], [id number], [place], [id number], [place], [address]. [place] tel:[phone] tel: tel: [phone] Arthritis Arthritis Pain in [facility] jointFatigueB MD [place]. Provider: Associates Ty [facility] 7 5794 Herrera Gracia PLLC, 5794 PLLC painFibromyal Katrina Upton, [facility] [place], [address] [facility], [place], [address] [place], [place], [place], [place], [id number], [place], [id number], [place], [address]. [place] tel:[phone] tel: tel:[phone] Arthritis Arthritis Pain in [facility] jointFatigueB MD [place]. Provider: Associates Associates ack pain 6 5794 Herrera Gracia [facility], 5794 [facility] MD Upton, [facility], [address] [facility], [facility] [address] [place], [place], D, [place], [id number], [place], [id number], [place], [address]. [place] tel:-[phone] tel:[phone] tel:[phone] 760284 Family History Family Member Diagnosis Age At Onset No information Immunizations Vaccine Date Status Comments No information Payers Payer name Insurance type Covered green party ID Authorization(s) BCBS No Referral Required [id number] Social History Type Description Quantity Date Captured [...] Referral Referred To: ordered Dayanna Hilliard MD [address] [place] [address] 809 [place], [phone] Ordered: Referrals: Endocrinology, Diabetes and Metabolism. Dayanna Hilliard MD. Location: [address] [place] [address]. Evaluate and treat Referral Ordered: ordered *XRAY [...]
--- OUTSIDE RECORDS SUMMARY | 2019-08-02 12:22 | XMS REPORT | Continuity of Care Document ---
:1980 Author Organization [facility] Address [address] [place], [place] [id number] Phone Care Team Providers Name Role Phone [...] Systemic involvement of connective tissue, unspecified Other residential (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 Pain in rt hip Polyarthritis Systemic involvement of connective tissue, unspecified Other residential (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 Systemic involvement of connective tissue, unspecified Other superintendent container terminal (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 Systemic involvement of connective tissue, unspecified Other residential (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 Systemic involvement of connective tissue, unspecified Other superintendent container terminal (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 Fibromyalgia Systemic involvement of connective tissue, unspecified Other superintendent container terminal (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 Systemic involvement of connective tissue, unspecified Other superintendent container terminal (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 Fibromyalgia Carpal tunnel syndrome of lt arm Carpal tunnel syndrome of rt arm Systemic involvement of connective tissue, unspecified Fibromyalgia Other residential (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 Systemic involvement of connective tissue, unspecified Other superintendent container terminal drug therapy Fibromyalgia Systemic involvement of connective tissue, unspecified Other superintendent container terminal drug therapy Systemic involvement of connective tissue, unspecified Other superintendent container terminal drug therapy Back pain Systemic involvement of connective tissue, unspecified Fibromyalgia Other residential drug therapy Back pain Systemic involvement of connective tissue, unspecified Other superintendent container terminal drug therapy Pain in unspecified hand Pain in unspecified ankle and joints of unspecified foot Plantar fasciitis Systemic involvement of connective tissue, unspecified Other residential drug therapy Abnormal weight gain Fatigue Systemic involvement of connective tissue, unspecified Other superintendent container terminal drug therapy Systemic involvement of connective tissue, unspecified Other residential drug therapy Pain in joint Fatigue Back [...] Visit Copied on Encounter Arthritis Arthritis Systemic [facility] involvement C September. Provider: [facility] 9 [address] [facility], 5794 PLLC tissue, [facility] unspecifiedOt MD Veto, [address], her residential [place], [place], (current) [place], [address] Suite [place], drug [id number], 600, [id number], therapyPain [place]. [place], [place] in [place] tel:[phone] [place], tel:[phone] hipPolyarthri 04556 [id number]. [id number] tis tel:[phone] lting Provider: Dayanna Gaines , [address], [place], [address]. tel:[phone] lting Provider: Eleazar Witt MD, [facility] [place] [address] [facility] [address], [place], [address]. tel:[phone] ring Provider: Lesia Venegas MD, [address] [place], [place], [id number]. tel:[phone] Arthritis Arthritis [facility] [place] September. [facility] 9 5794 PLLC, 5794 PLLC [facility], [place], [place], [place], [place], [id number], [id number], [place]. [place] tel:[phone] tel:[phone] Arthritis Arthritis [facility] C September. [facility] 9 5794 PLLC, 5794 PLLC [facility], [place], [place], [place], [id number], [id number], [place]. [place] tel:[phone] tel:[phone] Arthritis Arthritis [facility] 1- PA-C September. [facility] 9 5794 PLLC, [address] [facility], [place], [place], [place], [place], [id number], [id number], [place]. [place] tel:[phone] tel:[phone] Arthritis Arthritis Systemic [facility] involvement PA-C September. Provider: Ty Crawford of connective 9 5[address] [facility], 5794 PLLC tissue, [facility] centerEros Laws MD, [address] [place] [address], her residential [place], [place], (current) [place], [address] Suite [place], drug therapy [id number], 600, [id number], [place]. [place], [place] tel:[phone] [place], tel:[phone] [id number]. [id number] tel:[phone] lting Provider: Dayanna Gaines , [address] [facility] [address], [place], [address]. tel:[phone] lting Provider: Eleazar Witt MD, [facility] [address], [place], [address]. tel:[phone] [facility] Provider: Lesia Venegas MD, [address] [place], [place], [id number]. tel:[phone] Arthritis Arthritis [facility] 0- PA-C September. [facility] 9 5794 PLLC, [address] [facility], [place], [place], [id number], [id number], [place]. [place] tel:[phone] tel:[phone] Arthritis Arthritis Systemic [facility] involvement PA-C September. Provider: Ty Mcrae connective 9 [address] [facility] [facility], 5794 PLLC tissue, [facility] Center[facility] Veto, [address] [place] [address], her superintendent container terminal [place], [place], (current) [place], [address] Suite [place], drug therapy [id number], 600, [id number], [place]. [place], [place] tel:[phone] [place], tel:[phone] [id number]. [id number] tel:[phone] lting Provider: Dayanna panda, [address] [facility] [address], [place], [address]. tel:[phone] lting Provider: Eleazar Witt MD, [facility] [place] [address] [facility] [address], [place], [address]. tel:[phone] ring Provider: Lesia Venegas MD, [address] [place], [place], [id number]. tel:[phone] Arthritis Arthritis Systemic Aug- [facility] involvement 8 PA-C September. Provider: [facility] of connective 9 [address] [facility] [facility], 5794 PLLC [facility], [facility] unspecifiedOt MD Veto, [address] [place], her residential [place], [place], (current) [place], [address] Suite [place], drug therapy [id number], 600, [id number], [place]. [place], [place] tel:[phone] [place], tel:[phone] [id number]. [id number] tel:[phone] lting Provider: Dayanna panda, [address] [facility] [address], [place], [address]. tel:[phone] lting Provider: Eleazar Witt MD, [facility] [place] [address] [facility] [address], [place], [address]. tel:[phone] ring Provider: Lesia Venegas MD, [address] [place], [place], [id number]. tel:[phone] Arthritis Arthritis Systemic Jul-0 [facility] involvement 6 PA-C September. Provider: [facility] of connective 9 [address] [facility] [facility], 5794 PLLC tissue, [facility] unspecifiedOt MD Veto, [address] [place], her superintendent container terminal [place], [place], (current) [place], [address] Suite [place], drug [id number], 600, [id number], therapyFibrom [place]. [place], [place] yalgia tel:[phone] [place], tel:[phone] [id number]. [id number] tel:[phone] lting Provider: Dayanna panda, [address] [facility] [address], [place], [address]. tel:[phone] lting Provider: Eleazar Witt MD, [facility] [place] [address] [facility] [address], [place], [address]. tel:[phone] ring Provider: Herrera Upton, [address] [place] [address] [place], [address]. tel:[phone] Arthritis Arthritis Systemic [facility] involvement 8-201 PA-C September. Provider: [facility] of connective 8 [address] [facility] [facility], 5794 PLLC tissue, [facility] medical centerOt MD Veto, [address] [place], her residential [place], [place], (current) [place], [address] Suite [place], drug therapy [id number], 600, [id number], [place]. [place], [place] tel:[phone] [place], tel:[phone] [id number]. [id number] tel:[phone] lting Provider: Dayanna panda, [address] [facility] [address], [place], [address]. tel:[phone] lting Provider: Eleazar Witt MD, [facility] [place] [address] [facility] [address], [place], [address]. tel:[phone] ring Provider: Herrera Upton, [address] [place] [address] [place], [address]. tel:[phone] Arthritis Arthritis Systemic Sep-0 [facility] involvement KIMBERLY September. Provider: Associates [facility] of connective 8 [address] [facility], 5794 PLLC tissue, [facility] unspecifiedEros Laws MD, [address] [place], her superintendent container terminal [place], [place], (current) [place], [address] Suite [place], drug [id number], 600, [id number], therapyFibrom [place]. [place], [place] yalgiaCarpal tel:[phone] [place], tel:[phone] [id number]. 724131 syndrome of tel:[phone] lt armCarpal [phone] tunnel lting syndrome of Provider: rt arm Dayanna panda, [address], [place], [address]. tel:[phone] lting Provider: Eleazar Witt MD, [facility] [address], [place], [address]. tel:[phone] [facility] Provider: Herrera Gracia MD [place], [address] [facility] [address], [place], [address]. tel:[phone] Arthritis Arthritis Systemic Jan- [facility] involvement Lianne Romero Provider: Associates Associates of connective 8 5[address] [facility] [facility], 5794 PLLC tissue, [facility] unspecifiedHayes Jansen MD, [address] [place] [address], bromyalgiaOth [place], [place], er residential [place], [address] Suite [place], (current) [id number], 600, [id number], drug therapy [place]. [place], [place] tel:[phone] [place], tel:[phone] [id number]. [id number] tel:[phone] lting Provider: Dayanna panda, [address], [place], [address]. tel:[phone] lting Provider: Eleazar Witt MD, [facility] [place] [address] [facility] [address], [place], [address]. tel:[phone] ring Provider: Herrera Upton, [address] [facility] [address], [place], [address]. tel:[phone] Arthritis Arthritis Systemic Reginald-0 [facility] involvement 6 PA-C September. Provider: Associates Associates of connective 8 [address] [facility] [facility], 5794 PLLC tissue, [facility] Center[facility] Laws MD, [address] [place] [address], her residential [place], [place], drug [place], [address] Suite [place], therapyFibro [id number], 600, [id number], yalgia [place]. [place], [place] tel:[phone] [place], tel:[phone] [id number]. [id number] tel:[phone] lting Provider: Dayanna Gaines , [address], [place], [address]. tel:[phone] lting Provider: Eleazar Witt MD, [facility] [place] [address] [facility] [address], [place], [address]. tel:[phone] ring Provider: Herrera Upton, [address] [place] [address] [address], [place], [address]. tel:[phone] Arthritis Arthritis Systemic Aug-1 [facility] involvement PA-C September. Provider: Associates Associates of connective 8 [address] [facility] [facility], 5794 PLLC tissue, [facility] Yvonne Laws MD, [address] [place], her superintendent container terminal [place], [place], drug therapy [place], [address] Suite [place], [id number], 600, [id number], [place]. [place], [place] tel:[phone] [place], tel:[phone] [id number]. [address] tel:[phone] lting Provider: Dayanna Gaines , 101 [facility] [address], [place], [address]. tel:[phone] lting Provider: Eleazar Witt MD, [facility] [place] [address] [facility] [address], [place], [address]. tel:[phone] ring Provider: Herrera Upton, [address] [facility] [address], [place], [address]. tel:[phone] Arthritis Arthritis Systemic May- [facility] involvement 7 PA-C September. Provider: Associates Associates of connective 7 5[address] [facility] [facility], 57Mickey PLLC tissue, [facility] unspecparrisOt MD Veto, [address] [place] [address], her residential [place], [place], drug [place], [address] Suite [place], therapyBack [id number], 600, [id number], pain [place]. [place], [place] tel:[phone] [place], tel:[phone] [id number]. 659288 tel:[phone] lting Provider: Dayanna Gaines , [address] [facility] [address], [place], [address]. tel:[phone] lting Provider: Eleazar Witt MD, [facility] [place] [address] [facility] [address], [place], [address]. tel:[phone] ring Provider: Herrera Upton, [address] [facility] [address], [place], [address]. tel:[phone] Arthritis Arthritis Systemic Apr- [facility] involvement 0 PA-C September. Provider: Associates Associates of connective 7 5[address] [facility] [facility], 5794 PLLC tissue, [facility] unspecifiedFi MD Veto, [address] [place], bromyalgiaOth [place], [place], er residential [place], [address] Suite [place], drug [id number], 600, [id number], therapyBack [place]. [place], [place] pain tel:+ [place], tel:[phone]. 063827 tel:[phone] lting Provider: Dayanna Gaines , [address] [facility] [address], [place], [address]. tel:[phone] lting Provider: Eleazar Witt MD, [facility] [address], [place], [address]. tel:[phone] ring Provider: Herrera Upton, [address] [facility] [address], [place], [address]. tel:[phone] Arthritis Arthritis Systemic [facility] Referring Health Health involvement [facility]. Provider: Associates Ty schroeder connective 7 5794 Herrera Gracia PLLC, 5794 PLLC tissue, Katrina Upton, [facility], [address] [facility], her residential [place], Road [address] [place], drug [place], D, [place], therapyPain [id number], [place], [id number], [place], [address]. [place] unspecified tel:42 tel: tel:[phone] [place] [phone] unspecified ankle and joints of unspecified footPlantar fasciitis Arthritis Arthritis Systemic [facility] involvement PA-C September. Provider: Ty Swanson 7 5[address] Her[address] Gr[address] [facility]C, 5794 PLLC tissue, Katrina Upton, [facility], [address] [facility], her residential [place], [address] [place], drug [place], [place], [place], therapyAbnorm [id number], [place], [id number], [place], [address]. [place] gainFatigue tel:+[phone] tel:+[phone] tel:[phone] Arthritis Arthritis Systemic October- [facility] Health involvement PA-C September. Provider: Associates Associates of connective 7 5[address] Her[address] Gracia PLLC, 5794 PLLC tissueKatrina MD, [facility], [address] [facility], her residential [place], [address] [place], drug therapy [place], [place], [place], [id number], [place], [id number], [place], [address]. [place] tel:+[phone] tel:+ tel:[phone] Arthritis Arthritis Systemic [facility] involvement 1- PA-C September. Provider: Ty Swanson 7 5794 Herrera SCHWARTZC, 5794 PLLC Katrina gaitan MD, [facility], [address] [facility], her superintendent container terminal [place], [address] [place], drug therapy [place], [place], [place], [id number], [place], [id number], [place], [address]. [place] tel:+[phone] tel:+6 tel:[phone] Arthritis Arthritis Pain in [facility] jointFatigueB MD Soto. Provider: Ty beach 7 5794 Herrera Gracia PLLC, 5794 PLLC painFibromyal Katrina Upton, [facility], [address] [facility], [place], [address] [place], [place], [place], [place], [id number], [place], [id number], [place], [address]. [place] tel:+[phone] tel:+[phone] tel:[phone] Arthritis Arthritis Pain in [facility] jointFatigueB MD S[place]. Provider: Ty beach pain 6 5794 Herrera SCHWARTZC, 5794 PLLC Katrina Upton, [facility], [address] [facility], [place], [address] [place], [place], [place], [place], [id number], [place], [id number], [place], [address]. [place] tel:[phone] [phone] [phone] Family History Family Member Diagnosis Age At Onset No information Immunizations Vaccine Date Status Comments No information Payers Payer name Insurance type Covered libertarian ID Authorization(s) BCBS No Referral Required [id number] Social History Type Description Quantity Date Captured [...] Referral Referred To: ordered Dayanna Hilliard MD [address] [place] [address], [address] [phone] Ordered: Referrals: Endocrinology, Diabetes and Metabolism. Dayanna Hilliard MD. Location: [address] [place] [address]. Evaluate and treat Referral Ordered: ordered *XRAY [...]
--- OUTSIDE RECORDS SUMMARY | 2019-08-02 12:22 | XMS REPORT | Continuity of Care Document ---
:1980 Author Organization [facility] Address [address], [place] [id number] Phone Care Team Providers Name Role Phone [...] Systemic involvement of connective tissue, unspecified Other custodial (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 Pain in rt hip Polyarthritis Systemic involvement of connective tissue, unspecified Other custodial (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 Systemic involvement of connective tissue, unspecified Other piece dyer (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 Systemic involvement of connective tissue, unspecified Other custodial (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 Systemic involvement of connective tissue, unspecified Other piece dyer (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 Fibromyalgia Systemic involvement of connective tissue, unspecified Other piece dyer (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 Systemic involvement of connective tissue, unspecified Other piece dyer (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 Fibromyalgia Carpal tunnel syndrome of lt arm Carpal tunnel syndrome of rt arm Systemic involvement of connective tissue, unspecified Fibromyalgia Other custodial (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 Systemic involvement of connective tissue, unspecified Other piece dyer drug therapy Fibromyalgia Systemic involvement of connective tissue, unspecified Other piece dyer drug therapy Systemic involvement of connective tissue, unspecified Other piece dyer drug therapy Back pain Systemic involvement of connective tissue, unspecified Fibromyalgia Other custodial drug therapy Back pain Systemic involvement of connective tissue, unspecified Other piece dyer drug therapy Pain in unspecified hand Pain in unspecified ankle and joints of unspecified foot Plantar fasciitis Systemic involvement of connective tissue, unspecified Other custodial drug therapy Abnormal weight gain Fatigue Systemic involvement of connective tissue, unspecified Other piece dyer drug therapy Systemic involvement of connective tissue, unspecified Other custodial drug therapy Pain in joint Fatigue Back [...] Visit Copied on Encounter Arthritis Arthritis Systemic [facility] involvement C September. Provider: Ty Mcrae [facility] 9 [address] [facility], 5794 PLLC tissue, [facility] unspecifiedOt MD Veto, [address], her custodial [place], Quinn [place], (current) [place], [address] Suite [place], drug [id number], 600, [id number], therapyPain [place]. [place], [place] in rt tel:[phone] [place], tel:[phone] hipPolyarthri 40930 [id number]. [id number] tis tel:[phone] lting Provider: Dyaanna Gaines , [address], [place], [address]. tel:[phone] lting Provider: Eleazar Witt MD, [facility] [place] [address] [facility] [address], [place], [address]. tel:[phone] ring Provider: Lesia Venegas MD, [address] [place], [place], [id number]. tel:[phone] Arthritis Arthritis [facility] [place] September. [facility] 9 5794 PLLC, 5794 PLLC [facility], [place], [place], [place], [id number], [id number], [place]. [place] tel:[phone] tel:[phone] Arthritis Arthritis [facility] C September. [facility] 9 5794 PLLC, 5794 PLLC [facility], [place], [place], [place], [id number], [id number], [place]. [place] tel:[phone] tel:[phone] Arthritis Arthritis [facility] 1- PA-C September. [facility] 9 5794 PLLC, 5794 PLLC [facility], [place], [place], [place], [id number], [id number], [place]. [place] tel:[phone] tel:[phone] Arthritis Arthritis Systemic [facility] involvement PA-C September. Provider: Ty Crawford of connective 9 5[address] [facility], 5794 PLLC tissue, [facility] unspecst. vincent's blountEros Laws MD, [address] [place] [address], her custodial [place], Quinn [place], (current) [place], [address] Suite [place], drug therapy [id number], 600, [id number], [place]. [place], [place] tel:[phone] [place], tel:[phone] [id number]. [id number] tel:[phone] lting Provider: Dayanna Gaines , [address] [facility] [address], [place], [address]. tel:[phone] lting Provider: Eleazar Witt MD, [facility] [address], [place], [address]. tel:[phone] [facility] Provider: Lesia Venegas MD, [address] [place], [place], [id number]. tel:[phone] Arthritis Arthritis [facility] 0- PA-C September. [facility] 9 5794 PLLC, 5794 PLLC [facility], [place], [place], [id number], [id number], [place]. [place] tel:[phone] tel:[phone] Arthritis Arthritis Systemic [facility] involvement PA-C September. Provider: Ty Mcrae connective 9 5[address] [facility], 5794 PLLC tissue, [facility] Veto, [address] [place] [address], her piece dyer [place], Quinn [place], (current) [place], [address] [place], drug therapy [id number], [address], [id number], [place]. [place], [place] tel:[phone] [place], tel:[id number]. [id number] tel:[phone] lting Provider: Dayanna panda, [address] [facility] [address], [place], [address]. tel:[phone] lting Provider: Eleazar Witt MD, [facility] [place] [address] [facility] [address], [place], [address]. tel:[phone] ring Provider: Lesia Venegas MD, [address] [place], [place], [id number]. tel:[phone] Arthritis Arthritis Systemic Aug- [facility] involvement 8 PA-C September. Provider: [facility] of connective 9 [address] [facility], [address] [facility], [facility] unspecifiedOt MD Veto, [address] [place], her custodial [place], Quinn [place], (current) [place], [address] [place], drug therapy [id number], 600, [id number], [place]. [place], [place] tel:[phone] [place], tel:[phone] [id number]. [id number] tel:[phone] lting Provider: Dayanna panda, [address] [facility] [address], [place], [address]. tel:[phone] lting Provider: Eleazar Witt MD, [facility] [place] [address] [facility] [address], [place], [address]. tel:[phone] ring Provider: Lesia Venegas MD, [address] [place], [place], [id number]. tel:[phone] Arthritis Arthritis Systemic Jul-0 [facility] involvement 6 PA-C September. Provider: [facility] of connective 9 [address] [facility], 5794 PLLC tissue, [facility] unspecifiedOt MD Veto, [address] [place], her piece dyer [place], Quinn [place], (current) [place], [address] Suite [place], drug [id number], [address], [id number], therapyFibrom [place]. [place], [place] yalgia tel:[phone] [place], tel:[phone] [id number]. [id number] tel:[phone] lting Provider: Dayanna panda, [address] [facility] [address], [place], [address]. tel:[phone] lting Provider: Eleazar Witt MD, [facility] [place] [address] [facility] [address], [place], [address]. tel:[phone] ring Provider: Herrera Upton, [address] [place] [address] [place], [address]. tel:[phone] Arthritis Arthritis Systemic [facility] involvement 8-201 PA-C September. Provider: [facility] of connective 8 5[address] [facility], 5794 PLLC tissue, [facility] unspecst. vincent's blountOt MD Veto, [address] [place], her custodial [place], Quinn [place], (current) [place], [address] Suite [place], drug therapy [id number], 600, [id number], [place]. [place], [place] tel:[phone] [place], tel:[phone] [id number]. [address] tel:[phone] lting Provider: Dayanna panda, [address] [facility] [address], [place], [address]. tel:[phone] lting Provider: Eleazar Witt MD, [facility] [place] [address] [facility] [address], [place], [address]. tel:[phone] ring Provider: Herrera Upton, [address] [place] [address] [place], [address]. tel:[phone] Arthritis Arthritis Systemic Sep-0 [facility] involvement KIMBERLY September. Provider: [facility] of connective 8 5[address] [facility], 5794 PLLC tissue, [facility] unspecifiedEros Laws MD, [address] [place], her piece dyer [place], Quinn [place], (current) [place], [address] Suite [place], drug [id number], 600, [id number], therapyFibrom [place]. [place], [place] yalgiaCarpal tel:[phone] [place], tel:[phone] [id number]. [id number] syndrome of tel:[phone] lt armCarpal [phone] tunnel lting syndrome of Provider: rt arm Dayanna panda, [address], [place], [address]. tel:[phone] lting Provider: Eleazar Witt MD, [facility] [address], [place], [address]. tel:[phone] [facility] Provider: Herrera Gracia MD De Lancey, [address] [facility] [address], [place], [address]. tel:[phone] Arthritis Arthritis Systemic Jan- [facility] involvement Lianne Romero Provider: Associates Associates of connective 8 5[address] [facility], 5794 PLLC tissue, [facility] unspecifiedHayes Jansen MD, [address] [place] [address], bromyalgiaOth [place], Quinn [place], er custodial [place], [address] [place], (current) [id number], 600, [id number], drug therapy [place]. [place], [place] tel:[phone] [place], tel:[phone] [id number]. [id number] tel:[phone] lting Provider: Dayanna panda, [address], [place], [address]. tel:[phone] lting Provider: Eleazar Witt MD, [facility] [place] [address] [facility] [address], [place], [address]. tel:[phone] ring Provider: Herrera Upton, [address] [facility] [address], [place], [address]. tel:[phone] Arthritis Arthritis Systemic Reginald-0 [facility] involvement 6 PA-C September. Provider: Associates [facility] of connective 8 5[address] [facility], 5794 PLLC tissue, [facility] Health[facility] Laws MD, [address] [place] [address], her custodial [place], Quinn [place], drug [place], [address] Suite [place], therapyFibro [id number], 600, [id number], yalgia [place]. [place], [place] tel:[phone] [place], tel:[phone] [id number]. [id number] tel:[phone] lting Provider: Dayanna Gaines , [address], [place], [address]. tel:[phone] lting Provider: Eleazar Witt MD, [facility] [place] [address] [facility] [address], [place], [address]. tel:[phone] ring Provider: Herrera Upton, [address] [place] [address] [address], [place], [address]. tel:[phone] Arthritis Arthritis Systemic Aug-1 [facility] involvement PA-C September. Provider: Associates Associates of connective 8 5[address] [facility], 5794 PLLC tissue, [facility] Yvonne Laws MD, [address] [place], her piece dyer [place], Quinn [place], drug therapy [place], [address] Suite [place], [id number], 600, [id number], [place]. [place], [place] tel:[phone] [place], tel:[phone] [id number]. [id number] tel:[phone] lting Provider: Dayanna Gaines , [address] [facility] [address], [place], [address]. tel:[phone] lting Provider: Eleazar Witt MD, [facility] [place] [address] [facility] [address], [place], [address]. tel:[phone] ring Provider: Herrera Upton, [address] [facility] [address], [place], [address]. tel:[phone] Arthritis Arthritis Systemic May- [facility] involvement 7 PA-C September. Provider: Associates [facility] of connective 7 5[address] [facility] PLLC, 57Mickey PLLC tissue, [facility] unspecparrisOt MD Veto, [address] [place] [address], her custodial [place], Quinn [place], drug [place], [address] Suite [place], therapyBack [id number], 600, [id number], pain [place]. [place], [place] tel:[phone] [place], tel:[phone] [id number]. [id number] tel:[phone] lting Provider: Dayanna Gaines , [address] [facility] [address], [place], [address]. tel:[phone] lting Provider: Eleazar Witt MD, [facility] [place] [address] [facility] [address], [place], [address]. tel:[phone] ring Provider: Herrera Upton, [address] [facility] [address], [place], [address]. tel:[phone] Arthritis Arthritis Systemic Apr- [facility] involvement 0 PA-C September. Provider: Associates Associates of connective 7 5[address] [facility], 5794 PLLC tissue, [facility] unspecifiedFi MD Veto, [address] [place], bromyalgiaOth [place], Quinn [place], er custodial [place], [address] Suite [place], drug [id number], [address], [id number], therapyBack [place]. [place], [place] pain tel:+ [place], tel:[phone]. [id number] tel:[phone] lting Provider: Dayanna Gaines , [address] [facility] [address], [place], [address]. tel:[phone] lting Provider: Eleazar Witt MD, [facility] [address], [place], [address]. tel:[phone] ring Provider: Herrera Upton, [address] [facility] [address], [place], [address]. tel:[phone] Arthritis Arthritis Systemic [facility] Referring Health Health involvement [facility]. Provider: Associates Ty schroeder connective 7 5794 Herrera Gracia PLLC, 5794 PLLC tissue, Katrina Upton, [facility], [address] [facility], her custodial [place], [address] [place], drug [place], [place], [place], therapyPain [id number], [place], [id number], [place], [address]. [place] unspecified tel:[phone] tel: tel:[phone] [place] [phone] unspecified ankle and joints of unspecified footPlantar fasciitis Arthritis Arthritis Systemic [facility] involvement PA-C September. Provider: Ty Swanson 7 5794 Herrera Gracia PLLC, 5794 PLLC tissue, Katrina Upton, [facility], [address] [facility], her custodial [place], [address] [place], drug [place], [place], [place], therapyAbnorm [id number], Jo[place], [id number], [place], [address]. [place] gainFatigue tel:+[phone] tel:+315 tel:[phone] Arthritis Arthritis Systemic October- [facility] Health involvement PA-C September. Provider: Associates Associates of connective 7 5794 Herrera Gracia PLLC, 5794 PLLC tissueKatrina MD, [facility], [address] [facility], her custodial [place], [address] [place], drug therapy [place], [place], [place], [id number], [place], [id number], [place], [address]. [place] tel:[phone] tel:+ tel:[phone] Arthritis Arthritis Systemic [facility] involvement 1- PA-C September. Provider: yT Swanson 7 5794 Herrera SCHWARTZC, 5794 PLLC Katrina gaitan MD, [facility], [address] [facility], her piece dyer [place], [address] [place], drug therapy [place], [place], [place], [id number], [place], [id number], [place], [address]. [place] tel:+[phone] tel:+6 tel:[phone] Arthritis Arthritis Pain in [facility] jointFatigueB MD [place]. Provider: Ty beach 7 5794 Herrera Gracia PLLC, 5794 PLLC painFibromyal Katrina Upton, [facility], [address] [facility], [place], [address] [place], [place], [place], [place], [id number], [place], [id number], [place], [address]. [place] tel:[phone] tel:[phone] tel:[phone] Arthritis Arthritis Pain in [facility] jointFatigueB MD [place]. Provider: Ty beach pain 6 5794 Herrera SCHWARTZC, 5794 PLLC Katrina Upton, [facility], [address] [facility], [place], [address] [place], [place], [place], [place], [id number], [place], [id number], [place], [address]. [place] tel:[phone] [phone] [phone] Family History Family Member Diagnosis Age At Onset No information Immunizations Vaccine Date Status Comments No information Payers Payer name Insurance type Covered alliance party ID Authorization(s) BCBS No Referral Required [id number] Social History Type Description Quantity Date Captured [...] Referral Referred To: ordered Dayanna Hilliard MD [address] [place] [address], [address] [id number] Ordered: Referrals: Endocrinology, Diabetes and Metabolism. Dayanna Hilliard MD. Location: [address] [place] [address]. Evaluate and treat Referral Ordered: ordered *XRAY ENTIRE SPINE AP/LAT Appointment Patt Brnener BOOKED Appointment Patt Brenner BOOKED History Of [...] to medications prescribed Risks/benefits of medications reviewed Exercise more Weight reduction urged. Stretching Call if symptoms persist Call if symptoms persist Reviewed importance of compliance/adherence to medications prescribed Risks/benefits of medications reviewed Discussed importance of holding DMARDs/ biologics if patient develops an infection and to notify the treating physician update eye exam; f/u with eye doc Reviewed importance of compliance/adherence to medications prescribed [...] of medications reviewed update eye exam yearly Discussed importance of holding DMARDs/ biologics if patient develops an infection and to notify the treating physician Risks/benefits of medications reviewed Reviewed importance of compliance/adherence to medications prescribed
[2019-08-02 12:31] VITALS: BP 106/67
--- NOTE | 2019-08-02 12:59 | UC ---
Throat Pain/Nasal [place] HPI - HPI Summary HPI Summary: 38-year-old woman comes in with chief complaint of upper respiratory tract infection symptoms for 2 days. She's had rhinorrhea cough chest congestion. She's had green sputum. Sore throat is mild. She also has pain on the sides of her chest that are worse with coughing. No complaint of any abdominal pain. Patient is on methotrexate and therefore she is potentially immunocompromised. - History of Current Complaint Chief Complaint: UCRespiratory Stated Complaint: COUGH,EYE COMPLAINT,RIB PAIN Time Seen by Provider: 08/02/19 12:40 Hx Last Menstrual Period: 2012 Pain Intensity: 6 - Allergies/Home Medications Allergies/Adverse Reactions: Allergies Allergy/AdvReac Type Severity Reaction Status Date / Time bupropion [From Wellbutrin] Allergy Hives Verified 08/02/19 12:31 gabapentin Allergy Hives Verified 08/02/19 12:31 heparin Allergy Hives Verified 08/02/19 12:31 metronidazole [From Flagyl] Allergy Hives Verified 08/02/19 12:31 vancomycin Allergy Hives Verified 08/02/19 12:31 Home Medications: Home Medications Folic Acid TAB* [Folvite TAB*] 1 mg PO BID 08/02/19 [History Confirmed 08/02/19] Methotrexate TAB* 6 tab PO WEEKLY 08/02/19 [History Confirmed 08/02/19] PMH/Surg Hx/FS Hx/Imm Hx Previously Healthy: Yes - on methotrexate and Plaquenil Other Endocrine History: LUPUS - Surgical History Surgical History: Yes Surgery Procedure, Year, and Place: hysterectomy 2012 - Family History Known Family History: Positive: Hypertension - Social History Alcohol Use: Weekly Substance Use Type: Marijuana Substance Use Comment - Amount & Last Used: daily Smoking Status (MU): Former Smoker - Immunization History Most Recent Tetanus Shot: 2017 Review of Systems All Other Systems Reviewed And Are Negative: Yes Constitutional: Positive: Other - SEE HPI Skin: Positive: Negative Eyes: Positive: Other - REPORTS BURNING EYES ENT: Positive: Sore Throat, Nasal Discharge, Sinus Congestion Respiratory: Positive: Cough, Other - SEE HPI Cardiovascular: Positive: Other - SEE HPI Gastrointestinal: Positive: Negative Motor: Positive: Negative Neurovascular: Positive: Negative Musculoskeletal: Positive: Negative Neurological/Mental Status: Positive: Negative Psychological: Positive: Negative Is Patient Immunocompromised?: No Physical Exam Triage Information Reviewed: Yes Appearance: No Pain Distress, Well-Nourished, Ill-Appearing - MILD Vital Signs: Initial Vital Signs Temp 98.9 F 08/02/19 12:27 Pulse 83 08/02/19 12:27 Resp 16 08/02/19 12:27 BP 106/67 08/02/19 12:27 Pulse Ox 100 08/02/19 12:27 Vital Signs Reviewed: Yes Eyes: Positive: Discharge - LEFT CLEAR DRAINAGE ENT: Positive: Pharyngeal erythema, Nasal congestion, Nasal drainage, TMs normal Neck: Positive: Supple Respiratory: Positive: Lungs clear, Normal breath sounds, No respiratory distress Cardiovascular: Positive: RRR Musculoskeletal: Positive: Strength Intact, ROM Intact Neurological: Positive: Alert, Muscle Tone Normal Psychological: Positive: Age Appropriate Behavior Skin Exam: Normal Throat Pain/Nasal Course/Dx - Course Course Of Treatment: Patient is on methotrexate and Plaquenil images therefore potentially immunocompromised. Discussed viral verses bacterial infections. Will treat with antibiotic due to potential immunocompromised state. - Differential Dx/Diagnosis Provider Diagnosis: Bronchitis, Conjunctivitis Discharge ED - Sign-Out/Discharge Documenting (check all that apply): Patient Departure All imaging exams completed and their final reports reviewed: No Studies - Discharge Plan Condition: Stable Disposition: HOME Prescriptions: DOXYcycline CAP(*) [DOXYcycline 100MG CAP(*)] 100 mg PO BID #20 cap Fluconazole 150 MG TAB* [Diflucan 150 MG TAB*] 150 mg PO ONCE #2 tablet Tobramycin 0.3% OPHTH.SANDRA* 1 drop LEFT EYE Q4H #1 btl Patient Education Materials: Acute Bronchitis (ED), Conjunctivitis (ED) Referrals: Lesia Venegas MD [Primary Care Provider] - Additional Instructions: FOLLOW UP WITH YOUR DOCTOR IF NOT COMPLETELY IMPROVED. GET REEVALUATED SOONER IF NOT IMPROVED OR WORSE OR ANY QUESTIONS OR CONCERNS. - Billing Disposition and Condition Condition: STABLE Disposition: Home
== END 2019-08-02 13:20 | disposition home or self-care (01) ==
LOC: UCCORT 10:22
DX: J40 Bronchitis, not specified as acute or chronic (principal); H10.9 Unspecified conjunctivitis; Z88.8 Allergy status to other drugs, medicaments and biological substances; Z88.1 Allergy status to other antibiotic agents
CPT/HCPCS: 99212; G0463